=== PATIENT | female | born 1960 | race Caucasian/White ===

== ENCOUNTER 2017-03-25 09:27 | Emergency (ER) | payer OTHER ==
[~2017-03-25] VITALS: Ht 167.6 cm; Wt 99.8 kg
[~2017-03-25 09:27] MED LIST: ACET325; ALBU3IS INH; ALBU90OI INH; ALBUIS; ALPR.5 PO; ALPR1 PO; AMIL5; AMIT50; AMIT50 PO; ARIP15; ARIP20; ARIP20 PO; ASCO500 PO; ASPI325; ASPI325 PO; ASPI81CH; ASPI81CH PO; Amitriptyline100 MG; Amitriptyline100 MG PO; CALCAVITD PO; CARI350 PO; CEPH500 PO; CHOL10002 PO; CIME400; CIPR500 PO; CITA20 PO; CLIN300 PO; CLON.1 PO; CLON1; CLON1 PO; CLON2; CLON2 PO; CRUTCH4 USE; CYAN1000I; DIAZ5 PO; DIGO.25; DILT180; DIPATR PO; DOCU100; ERGO400 PO; ESCI20; FERR160; FISH1000 PO; FLUSAL2505 INH; FOLI1; FURO20; FURO40; FURO40 PO; GABA300 PO; GLIM2; GLIM2 PO; GLIMEPIRIDE 1 MG; GLIP2.5ER; GUAI600T33; GUAIFENEX DM; HYDACE5 PO; HYDMOR2 PO; HYDMOR8; HYDPAM50 PO; INSR10I; INSR10I SC; INSUASPI SC; INSULANI; INSULANI SC; INSULANPEN SC; IPRAOI; LAMO100 PO; LAVAP17G PO; LEVEMIR FL100 UNIT/1 SC; LEVFLO500; LEVFLO500 PO; LEVO750 PO; LEXAPRO; LISI20; LISI5 PO; LOSA50 PO; LOVA20; LOVA20 PO; Lamictal200 MG PO; Lovastatin20 MG PO; Lovastatin40 MG PO; MAGCHL64ER; MAGOXI400 PO; METF500; METF500 PO; METF500C PO; METO10; METO10 PO; METO100ER; METO5; METO50; METO50 PO; METO50ER; METO50ER PO; MORP20L; MORP30; MORP30 PO; MORP60ER PO; MORPHINE LIQUID; MORPHINE PO; MULVITMIND PO; MULVITMINE; MULVITMINE PO; NATE60; Novolin R100 UNIT/M IM; Novolin R100 UNIT/M SC; OMEP40CA12 PO; OXYACE5C PO; OXYACE5T PO; OXYC10ER; OXYC30; OXYC30 PO; OXYC30ER PO; OXYC5; OXYGEN; OXYGEN USE; PANT40; PANT40 PO; PHENY100ER PO; PIOG15; POTA10T PO; POTCHL10ER; POTCHL20ER; POTCHL20ER PO; PRED10 PO; PRED20; PRED20 PO; PREDNISONE 20 MG; PREN-16 PO; PRENZ PO; PROC25S PR; PROM25; PROM25 PO; PROM25S; QUET100; RANI150; RISE35; RISP1; RISP2; RISP4 PO; RXDIPATR PO; RXHYDMOR2 PO; SENN187; SENN187 PO; SENNA GEN; SENNA-GEN PO; SENNP; SENNP PO; SPIHYD; SPIR50; SPIR50 PO; Senna8.6 M1 PO; VENL75; VITAMIN D5000 UNI1 PO; Verotin-Gr Cap1 EACH PO; [UNRECOGNIZED DRUG - CODE]; [UNRECOGNIZED DRUG - OTHER]; [UNRECOGNIZED DRUG - OTHER]; [UNRECOGNIZED DRUG - OTHER]; [UNRECOGNIZED DRUG - OTHER]; [UNRECOGNIZED DRUG - REMARK]; [UNRECOGNIZED DRUG - REMARK]
[2017-03-25] MEDS ORDERED: SPIR50 PO (09:51)
[2017-03-25 09:54] LABS: Bilirubin, Urine Neg (Neg); Blood, Urine 1+ (Neg); Glucose Qualitative, Urine Neg (Neg); Ketones, Urine Neg (Neg); Leukocyte Esterase, Urine 1+ (Neg); Nitrite, Urine Pos (Neg); Protein, Urine 1+ (Neg); Urobilinogen, Urine 1+ (Normal)
[2017-03-25 10:02] LABS: BASOPHILS ABSOLUTE AUTO 0.04 K/mm3 (0.00-0.23); BASOPHILS PERCENT AUTO 1 % (0-2); EOSINOPHILS ABSOLUTE AUTO 0.02 K/mm3 (0.00-0.68); EOSINOPHILS PERCENT AUTO 0 % (0-6); Hematocrit 44.6 % (33.0-51.0); Hemoglobin 13.9 g/dL (11.5-16.0); IMMATURE GRAN ABSOLUTE AUTO 0.03 K/mm3 (0.00-0.10); IMMATURE GRAN PERCENT AUTO 0 % (0-1); LYMPHOCYTES ABSOLUTE AUTO 0.99 K/mm3 (0.84-5.20); LYMPHOCYTES PERCENT AUTO 13 % (21-46); MONOCYTES ABSOLUTE AUTO 0.36 K/mm3 (0.16-1.47); MONOCYTES PERCENT AUTO 5 % (4-13); Mean Corpuscular HGB 27.6 pg (26.0-34.0); Mean Corpuscular HGB Conc 31.2 g/dL (31.5-36.5); Mean Corpuscular Volume 89 fL (80-100); Mean Platelet Volume 10.3 fL (9.1-12.4); NEUTROPHILS ABSOLUTE AUTO 6.27 K/mm3 (1.96-9.15); NEUTROPHILS PERCENT AUTO 81 % (41-73); Platelet Count 205 K/mm3 (150-400); RDW Coefficient Variation 13.8 % (11.7-14.2); RDW Standard Deviation 44.7 fL (35.1-46.3); Red Blood Cell Count 5.04 M/mm3 (3.80-5.20); White Blood Cell Count 7.71 K/mm3 (4.00-11.30)
[2017-03-25] MEDS ORDERED: Novolin R100 UNIT/M SC (10:05)
[2017-03-25 10:09] LABS: Appearance, Urine Cloudy (Clear); Color, Urine Yellow (P-Yellow)
[2017-03-25 10:11] LABS: Bacteria Many /hpf; Red Blood Cells, Urine 0-2 /hpf (0-2); Squamous Epithelial Cells Mod /hpf (Few)
[2017-03-25 10:21] LABS: Alanine Aminotransfer (ALT/SGP 83 U/L (12-78); Albumin, Blood 3.5 g/dL (3.4-5.0); Albumin/Globulin Ratio 0.9 (0.8-1.8); Alk Phos 97 U/L (50-136); Anion Gap 7 mmol/L (6-16); Aspartate Aminotrans (AST/SGOT 46 U/L (12-37); Bilirubin, Total 0.3 mg/dL (0.1-1.0); Blood Urea Nitrogen 9 mg/dL (8-24); CO2, Blood 26 mmol/L (21-32); Calcium, Blood 9.3 mg/dL (8.5-10.1); Chloride, Blood 105 mmol/L (98-108); Creatinine, Blood 0.82 mg/dL (0.40-1.00); Globulin, Blood 3.8 g/dL (2.2-4.0); Glomerular Filtration Rate >60 (60-); Glucose, Blood 98 mg/dL (70-99); Sodium, Blood 138 mmol/L (136-145); Total Protein, Blood 7.3 g/dL (6.4-8.2); Troponin I <0.015 ng/mL (0.000-0.040)
[2017-03-25 10:45] LABS: International Normalized Ratio 1.07; Prothrombin Time Results 11.1 Sec (9.7-11.5)
[2017-03-25] MEDS ORDERED: Zofran Odt4 MG SL (11:29)
[2017-11-01] MEDS ORDERED: PROM25 (21:37)
[2017-11-03] MEDS ORDERED: ASPI81CH PO (10:43)
== END 2017-03-25 12:11 | disposition home or self-care (01) ==
LOC: ER 09:27
PROVIDERS: Emergency Medicine
DX: G40.909 Epilepsy, unspecified, not intractable, without status epilepticus (principal); E86.0 Dehydration; F20.9 Schizophrenia, unspecified; G89.29 Other chronic pain; I11.0 Hypertensive heart disease with heart failure; I50.9 Heart failure, unspecified; E78.5 Hyperlipidemia, unspecified; E11.9 Type 2 diabetes mellitus without complications; I25.2 Old myocardial infarction; F17.200 Nicotine dependence, unspecified, uncomplicated; Z88.8 Allergy status to other drugs, medicaments and biological substances; Z88.0 Allergy status to penicillin; Z88.2 Allergy status to sulfonamides; Z88.5 Allergy status to narcotic agent; Z88.1 Allergy status to other antibiotic agents; Z91.09 Other allergy status, other than to drugs and biological substances; Z79.899 Other long term (current) drug therapy; Z79.82 Long term (current) use of aspirin; Z79.4 Long term (current) use of insulin; Z96.643 Presence of artificial hip joint, bilateral; Z96.653 Presence of artificial knee joint, bilateral; Z90.710 Acquired absence of both cervix and uterus; Z90.89 Acquired absence of other organs; Z87.01 Personal history of pneumonia (recurrent); Z85.3 Personal history of malignant neoplasm of breast
CPT/HCPCS: 36415; 70450; 74022; 80053; 81001; 82140; 83690; 84484; 85025; 85610; 87077; 87086; 87186; 96361; 96374; 96375; 99284; J1885; J2550; J7030

== ENCOUNTER → 2017-04-03 | Outpatient (CLI) | payer OTHER ==
[~2017-04-03] MED LIST changes: +DOCU100 PO; +OXYC15ER PO; +Zofran Odt4 MG SL
[2017-04-03 11:19] LABS: BASOPHILS ABSOLUTE AUTO 0.03 K/mm3 (0.00-0.23); BASOPHILS PERCENT AUTO 0 % (0-2); EOSINOPHILS ABSOLUTE AUTO 0.02 K/mm3 (0.00-0.68); EOSINOPHILS PERCENT AUTO 0 % (0-6); Hematocrit 46.1 % (33.0-51.0); Hemoglobin 14.7 g/dL (11.5-16.0); IMMATURE GRAN ABSOLUTE AUTO 0.06 K/mm3 (0.00-0.10); IMMATURE GRAN PERCENT AUTO 1 % (0-1); LYMPHOCYTES ABSOLUTE AUTO 1.21 K/mm3 (0.84-5.20); LYMPHOCYTES PERCENT AUTO 14 % (21-46); MONOCYTES ABSOLUTE AUTO 0.54 K/mm3 (0.16-1.47); MONOCYTES PERCENT AUTO 6 % (4-13); Mean Corpuscular HGB 28.5 pg (26.0-34.0); Mean Corpuscular HGB Conc 31.9 g/dL (31.5-36.5); Mean Corpuscular Volume 90 fL (80-100); Mean Platelet Volume 10.6 fL (9.1-12.4); NEUTROPHILS ABSOLUTE AUTO 7.05 K/mm3 (1.96-9.15); NEUTROPHILS PERCENT AUTO 79 % (41-73); Platelet Count 243 K/mm3 (150-400); RDW Coefficient Variation 14.4 % (11.7-14.2); RDW Standard Deviation 46.9 fL (35.1-46.3); Red Blood Cell Count 5.15 M/mm3 (3.80-5.20); White Blood Cell Count 8.91 K/mm3 (4.00-11.30)
[2017-04-03 11:34] LABS: Alanine Aminotransfer (ALT/SGP 67 U/L (12-78); Albumin, Blood 4.2 g/dL (3.4-5.0); Albumin/Globulin Ratio 1.2 (0.8-1.8); Alk Phos 109 U/L (40-126); Anion Gap 9 mmol/L (6-16); Aspartate Aminotrans (AST/SGOT 33 U/L (12-37); Bilirubin, Total 0.3 mg/dL (0.1-1.0); Blood Urea Nitrogen 6 mg/dL (8-24); Bun/Creatinine Ratio 7.5 (12.0-20.0); CO2, Blood 28 mmol/L (21-32); Calcium, Blood 9.5 mg/dL (8.5-10.1); Chloride, Blood 101 mmol/L (98-108); Globulin, Blood 3.4 g/dL (2.2-4.0); Glomerular Filtration Rate >60 (60-); Glucose, Blood 107 mg/dL (70-99); Potassium, Blood 4.3 mmol/L (3.5-5.5); Sodium, Blood 138 mmol/L (136-145); Total Protein, Blood 7.6 g/dL (6.4-8.2)
== END | disposition home or self-care (01) ==
LOC: LAB EV 11:15
PROVIDERS: Family Medicine
DX: E86.0 Dehydration (principal)
CPT/HCPCS: 80053; 85025

== ENCOUNTER → 2017-05-07 | Outpatient (CLI) | payer OTHER ==
[2017-05-07 12:41] LABS: Bilirubin, Urine Neg (Neg); Blood, Urine Neg (Neg); Glucose Qualitative, Urine Neg (Neg); Ketones, Urine Neg (Neg); Leukocyte Esterase, Urine Neg (Neg); Nitrite, Urine Neg (Neg); Protein, Urine Neg (Neg); Urobilinogen, Urine NORM (Normal)
[2017-05-07 13:01] LABS: Appearance, Urine Clear (Clear); Color, Urine Yellow (P-Yellow)
== END | disposition home or self-care (01) ==
LOC: LAB 10:45
PROVIDERS: Internal Medicine Hematology & Oncology
DX: R10.9 Unspecified abdominal pain (principal); R50.9 Fever, unspecified
CPT/HCPCS: 81003

== ENCOUNTER 2017-07-09 10:27 | Emergency (ER) | payer OTHER ==
[~2017-07-09] VITALS: Ht 167.6 cm; Wt 99.8 kg
[~2017-07-09 10:27] MED LIST changes: -DOCU100 PO; -OXYC15ER PO
== END 2017-07-09 11:13 | disposition home or self-care (01) ==
LOC: ER 10:27
DX: T21.22XA Burn of second degree of abdominal wall, initial encounter (principal); T22.221A Burn of second degree of right elbow, initial encounter; T22.111A Burn of first degree of right forearm, initial encounter; T31.0 Burns involving less than 10% of body surface; I11.0 Hypertensive heart disease with heart failure; I50.9 Heart failure, unspecified; J44.9 Chronic obstructive pulmonary disease, unspecified; E78.5 Hyperlipidemia, unspecified; E11.9 Type 2 diabetes mellitus without complications; I25.2 Old myocardial infarction; G40.909 Epilepsy, unspecified, not intractable, without status epilepticus; F17.200 Nicotine dependence, unspecified, uncomplicated; Z88.0 Allergy status to penicillin; Z88.8 Allergy status to other drugs, medicaments and biological substances; Z88.2 Allergy status to sulfonamides; Z88.5 Allergy status to narcotic agent; Z88.1 Allergy status to other antibiotic agents; Z91.09 Other allergy status, other than to drugs and biological substances; Z79.899 Other long term (current) drug therapy; Z79.82 Long term (current) use of aspirin; Z79.4 Long term (current) use of insulin; X08.8XXA Exposure to other specified smoke, fire and flames, initial encounter
CPT/HCPCS: 99282

== ENCOUNTER 2017-07-12 08:00 | Day surgery (SDC) | payer OTHER | END 2017-07-12 15:31 | disposition home or self-care (01) | LOC: WOUND 08:00 | PROC: 0HBMXZZ Excision of Right Foot Skin, External Approach (ICD-10-PCS; principal; 2017-07-12) | DX: T25.331A Burn of third degree of right toe(s) (nail), initial encounter (principal); T21.31XA Burn of third degree of chest wall, initial encounter; T22.221A Burn of second degree of right elbow, initial encounter; T21.00XA Burn of unspecified degree of trunk, unspecified site, initial encounter; F17.210 Nicotine dependence, cigarettes, uncomplicated; J44.9 Chronic obstructive pulmonary disease, unspecified; I11.0 Hypertensive heart disease with heart failure; I50.9 Heart failure, unspecified | CPT/HCPCS: 82947; 87070; 87077; 87186; 87205; G0463 ==

== ENCOUNTER 2017-07-19 10:15 | Day surgery (SDC) | payer OTHER | END 2017-07-19 14:02 | disposition home or self-care (01) | LOC: WOUND 10:15 | PROC: 0HBTXZZ (ICD-10-PCS; principal; 2017-07-19) | PROC: 0HBMXZZ Excision of Right Foot Skin, External Approach (ICD-10-PCS; principal; 2017-07-19) | DX: T21.31XA Burn of third degree of chest wall, initial encounter (principal); T25.331A Burn of third degree of right toe(s) (nail), initial encounter; T21.32XA Burn of third degree of abdominal wall, initial encounter; F17.210 Nicotine dependence, cigarettes, uncomplicated; J44.9 Chronic obstructive pulmonary disease, unspecified; F20.9 Schizophrenia, unspecified | CPT/HCPCS: G0463 ==

== ENCOUNTER 2017-07-26 10:15 | Day surgery (SDC) | payer OTHER | END 2017-07-26 12:02 | disposition home or self-care (01) | LOC: WOUND 10:15 | PROC: 0HBMXZZ Excision of Right Foot Skin, External Approach (ICD-10-PCS; principal; 2017-07-26) | DX: T25.331A Burn of third degree of right toe(s) (nail), initial encounter (principal); L97.512 Non-pressure chronic ulcer of other part of right foot with fat layer exposed; T22.221A Burn of second degree of right elbow, initial encounter; T21.00XA Burn of unspecified degree of trunk, unspecified site, initial encounter; F17.210 Nicotine dependence, cigarettes, uncomplicated; J44.9 Chronic obstructive pulmonary disease, unspecified; F20.9 Schizophrenia, unspecified; E11.621 Type 2 diabetes mellitus with foot ulcer | CPT/HCPCS: G0463 ==

== ENCOUNTER 2017-08-02 10:13 | Day surgery (SDC) | payer OTHER | END 2017-08-02 12:26 | disposition home or self-care (01) | LOC: WOUND 10:13 | PROC: 0HB5XZZ Excision of Chest Skin, External Approach (ICD-10-PCS; principal; 2017-08-02) | DX: T21.31XA Burn of third degree of chest wall, initial encounter (principal); T22.221A Burn of second degree of right elbow, initial encounter; T21.00XA Burn of unspecified degree of trunk, unspecified site, initial encounter; F17.210 Nicotine dependence, cigarettes, uncomplicated; J44.9 Chronic obstructive pulmonary disease, unspecified; F20.9 Schizophrenia, unspecified | CPT/HCPCS: G0463 ==

== ENCOUNTER 2017-08-08 13:12 | Day surgery (SDC) | payer OTHER | END 2017-08-08 22:56 | disposition home or self-care (01) | LOC: WOUND 13:12 | PROC: 0HB5XZZ Excision of Chest Skin, External Approach (ICD-10-PCS; principal; 2017-08-08) | DX: T21.31XA Burn of third degree of chest wall, initial encounter (principal); T21.00XA Burn of unspecified degree of trunk, unspecified site, initial encounter; T22.221A Burn of second degree of right elbow, initial encounter; F17.218 Nicotine dependence, cigarettes, with other nicotine-induced disorders; J44.9 Chronic obstructive pulmonary disease, unspecified; F20.9 Schizophrenia, unspecified | CPT/HCPCS: G0463 ==

== ENCOUNTER 2017-08-13 09:47 | Observation (INO) | payer OTHER ==
[~2017-08-13] VITALS: Ht 167.6 cm; Wt 106.8 kg
[2017-08-13] MEDS ORDERED: OXYC15ER PO (09:57)
[2017-08-13] MEDS ORDERED: ALPR1 PO (09:58)
[2017-08-13 11:03] LABS: BASOPHILS ABSOLUTE AUTO 0.04 K/mm3 (0.00-0.23); BASOPHILS PERCENT AUTO 0 % (0-2); EOSINOPHILS ABSOLUTE AUTO 0.03 K/mm3 (0.00-0.68); EOSINOPHILS PERCENT AUTO 0 % (0-6); Hematocrit 42.6 % (33.0-51.0); Hemoglobin 13.6 g/dL (11.5-16.0); IMMATURE GRAN ABSOLUTE AUTO 0.08 K/mm3 (0.00-0.10); IMMATURE GRAN PERCENT AUTO 1 % (0-1); LYMPHOCYTES ABSOLUTE AUTO 1.74 K/mm3 (0.84-5.20); LYMPHOCYTES PERCENT AUTO 16 % (21-46); MONOCYTES ABSOLUTE AUTO 1.01 K/mm3 (0.16-1.47); MONOCYTES PERCENT AUTO 9 % (4-13); Mean Corpuscular HGB 28.1 pg (26.0-34.0); Mean Corpuscular HGB Conc 31.9 g/dL (31.5-36.5); Mean Platelet Volume 9.8 fL (9.1-12.4); NEUTROPHILS ABSOLUTE AUTO 8.22 K/mm3 (1.96-9.15); NEUTROPHILS PERCENT AUTO 74 % (41-73); Platelet Count 208 K/mm3 (150-400); RDW Coefficient Variation 14.8 % (11.7-14.2); RDW Standard Deviation 47.9 fL (35.1-46.3); Red Blood Cell Count 4.84 M/mm3 (3.80-5.20); White Blood Cell Count 11.12 K/mm3 (4.00-11.30)
[2017-08-13 11:13] LABS: Mean Corpuscular Volume 88 fL (80-100)
[2017-08-13 11:22] LABS: Alanine Aminotransfer (ALT/SGP 65 U/L (12-78); Albumin, Blood 3.1 g/dL (3.4-5.0); Albumin/Globulin Ratio 0.8 (0.8-1.8); Alk Phos 103 U/L (50-136); Anion Gap 9 mmol/L (6-16); Aspartate Aminotrans (AST/SGOT 34 U/L (12-37); Bilirubin, Total 0.3 mg/dL (0.1-1.0); Blood Urea Nitrogen 8 mg/dL (8-24); Bun/Creatinine Ratio 10.9 (12.0-20.0); CO2, Blood 24 mmol/L (21-32); Calcium, Blood 8.4 mg/dL (8.5-10.1); Chloride, Blood 100 mmol/L (98-108); Creatinine, Blood 0.74 mg/dL (0.40-1.00); Globulin, Blood 3.7 g/dL (2.2-4.0); Glomerular Filtration Rate >60 (60-); Glucose, Blood 86 mg/dL (70-99); Potassium, Blood 4.1 mmol/L (3.5-5.5); Sodium, Blood 133 mmol/L (136-145); Total Protein, Blood 6.8 g/dL (6.4-8.2)
[2017-08-14 06:11] LABS: Hematocrit 37.9 % (33.0-51.0); Hemoglobin 11.9 g/dL (11.5-16.0); Mean Corpuscular HGB 28.1 pg (26.0-34.0); Mean Corpuscular HGB Conc 31.4 g/dL (31.5-36.5); Mean Corpuscular Volume 89 fL (80-100); Mean Platelet Volume 9.8 fL (9.1-12.4); Platelet Count 176 K/mm3 (150-400); RDW Coefficient Variation 15.1 % (11.7-14.2); RDW Standard Deviation 48.9 fL (35.1-46.3); Red Blood Cell Count 4.24 M/mm3 (3.80-5.20); White Blood Cell Count 12.16 K/mm3 (4.00-11.30)
[2017-08-14 06:27] LABS: Anion Gap 7 mmol/L (6-16); Blood Urea Nitrogen 9 mg/dL (8-24); Bun/Creatinine Ratio 11.1 (12.0-20.0); CO2, Blood 28 mmol/L (21-32); Chloride, Blood 100 mmol/L (98-108); Creatinine, Blood 0.81 mg/dL (0.40-1.00); Glomerular Filtration Rate >60 (60-); Glucose, Blood 91 mg/dL (70-99); Potassium, Blood 4.1 mmol/L (3.5-5.5); Sodium, Blood 135 mmol/L (136-145)
[2017-08-15 09:52] LABS: Hematocrit 39.1 % (33.0-51.0); Hemoglobin 11.7 g/dL (11.5-16.0); Mean Corpuscular HGB 27.5 pg (26.0-34.0); Mean Corpuscular HGB Conc 29.9 g/dL (31.5-36.5); Mean Platelet Volume 9.8 fL (9.1-12.4); Platelet Count 198 K/mm3 (150-400); RDW Coefficient Variation 14.8 % (11.7-14.2); RDW Standard Deviation 49.9 fL (35.1-46.3); Red Blood Cell Count 4.25 M/mm3 (3.80-5.20); White Blood Cell Count 6.94 K/mm3 (4.00-11.30)
[2017-08-15 10:04] LABS: Mean Corpuscular Volume 92 fL (80-100)
[2017-08-15 10:15] LABS: Anion Gap 6 mmol/L (6-16); Blood Urea Nitrogen 11 mg/dL (8-24); Bun/Creatinine Ratio 12.8 (12.0-20.0); CO2, Blood 32 mmol/L (21-32); Calcium, Blood 8.6 mg/dL (8.5-10.1); Chloride, Blood 102 mmol/L (98-108); Creatinine, Blood 0.86 mg/dL (0.40-1.00); Glomerular Filtration Rate >60 (60-); Glucose, Blood 126 mg/dL (70-99); Phosphorus, Blood 3.2 mg/dL (2.5-4.9); Potassium, Blood 4.7 mmol/L (3.5-5.5); Sodium, Blood 140 mmol/L (136-145)
[2017-08-15] MEDS ORDERED: Novolin R100 UNIT/M SC (13:35)
[2017-08-15] MEDS ORDERED: DOCU100 PO (13:36)
== END 2017-08-16 11:37 | disposition home health service (06) ==
LOC: ER 09:47 → MEDS 09:48 → ER 12:15 → MEDS 12:15 → ENPENDDIS 08-15 10:44 → EDPENDDIS 08-15 10:44 → EDPENDDISDT 08-16 11:22 → EDPENDDISTM 08-16 11:22 → EDPENDDIS 08-16 11:22 → MEDS 08-16 11:37
PROVIDERS: Emergency Medicine; Internal Medicine
DX: E11.621 Type 2 diabetes mellitus with foot ulcer (principal); L97.519 Non-pressure chronic ulcer of other part of right foot with unspecified severity; M86.271 Subacute osteomyelitis, right ankle and foot; T25.331A Burn of third degree of right toe(s) (nail), initial encounter; E87.1 Hypo-osmolality and hyponatremia; J44.9 Chronic obstructive pulmonary disease, unspecified; I10 Essential (primary) hypertension; F20.9 Schizophrenia, unspecified; F41.9 Anxiety disorder, unspecified; F32.9 Major depressive disorder, single episode, unspecified; E78.5 Hyperlipidemia, unspecified; I11.0 Hypertensive heart disease with heart failure; F17.210 Nicotine dependence, cigarettes, uncomplicated; I50.9 Heart failure, unspecified; G43.909 Migraine, unspecified, not intractable, without status migrainosus; Z86.010 Personal history of colon polyps; Z89.421 Acquired absence of other right toe(s); Z88.1 Allergy status to other antibiotic agents; Z88.2 Allergy status to sulfonamides; Z88.0 Allergy status to penicillin; Z88.5 Allergy status to narcotic agent; Z88.8 Allergy status to other drugs, medicaments and biological substances; Z79.82 Long term (current) use of aspirin; Z79.899 Other long term (current) drug therapy
CPT/HCPCS: 36415; 80048; 80053; 80069; 82947; 83880; 85025; 85027; 87071; 87075; 87077; 87186; 87205; 93005; 93010; 94640; 94760; 96365; 96366; 96372; 96374; 96375; 96376; 97116; 97161; 97530; 99285; G0378; G8978; G8979; J1650; J1885; J2001; J2250; J3010; J3370; J7030; J7042; J7050; J7120

== ENCOUNTER → 2017-09-17 | Outpatient (CLI) | payer OTHER ==
[~2017-09-17] MED LIST changes: +DOCU100 PO; +OXYC15ER PO
[2017-09-17 17:28] LABS: U Amphetamine Screen Not Detected; U Barbituate Screen Not Detected; U Benzodiazapine Screen Not Detected; U Buprenorphine Screen Not Detected; U Cannabinoids Screen Not Detected; U Cocaine Screen Not Detected; U Methadone Screen Not Detected; U Methamphetamine Screen Not Detected; U Opiates Screen Not Detected; U Oxycodone Screen DETECTED; U Phencyclidine Screen Not Detected; U Propoxyphene Screen Not Detected
== END | disposition home or self-care (01) ==
LOC: LAB 16:35 → LAB SHORT 16:35
PROVIDERS: Internal Medicine Hematology & Oncology
DX: Z51.81 Encounter for therapeutic drug level monitoring (principal); Z79.899 Other long term (current) drug therapy

== ENCOUNTER 2017-11-28 11:02 | Day surgery (SDC) | payer OTHER ==
[~2017-11-28] VITALS: Ht 167.6 cm; Wt 101.7 kg
== END 2017-11-28 15:12 | disposition home or self-care (01) ==
LOC: ORSCSDS 11:02
DX: K21.9 Gastro-esophageal reflux disease without esophagitis (principal); R13.10 Dysphagia, unspecified; K22.70 Barrett's esophagus without dysplasia; K22.2 Esophageal obstruction; K44.9 Diaphragmatic hernia without obstruction or gangrene; R19.7 Diarrhea, unspecified; Z86.010 Personal history of colon polyps; D12.0 Benign neoplasm of cecum; D12.2 Benign neoplasm of ascending colon; D12.3 Benign neoplasm of transverse colon; D12.5 Benign neoplasm of sigmoid colon; K57.30 Diverticulosis of large intestine without perforation or abscess without bleeding; K64.1 Second degree hemorrhoids; E78.5 Hyperlipidemia, unspecified; E11.9 Type 2 diabetes mellitus without complications; J44.9 Chronic obstructive pulmonary disease, unspecified; B19.20 Unspecified viral hepatitis C without hepatic coma; I10 Essential (primary) hypertension; F20.9 Schizophrenia, unspecified; F17.210 Nicotine dependence, cigarettes, uncomplicated; Z99.81 Dependence on supplemental oxygen
CPT/HCPCS: 82947; J2250; J7120

== ENCOUNTER → 2018-04-05 | Outpatient (CLI) | payer OTHER ==
[2018-04-05 13:40] LABS: U Amphetamine Screen Not Detected; U Barbituate Screen Not Detected; U Benzodiazapine Screen DETECTED; U Buprenorphine Screen Not Detected; U Cannabinoids Screen DETECTED; U Cocaine Screen Not Detected; U Methadone Screen Not Detected; U Methamphetamine Screen Not Detected; U Opiates Screen Not Detected; U Oxycodone Screen Not Detected; U Phencyclidine Screen Not Detected; U Propoxyphene Screen Not Detected
[2018-04-12 08:17] LABS: TRICYCLIC ANTIDEP Negative ng/mL ({null, Cutoff=100})
== END | disposition home or self-care (01) ==
LOC: LAB SHORT 12:42 → LAB 12:42
PROVIDERS: Internal Medicine Hematology & Oncology
DX: F11.20 Opioid dependence, uncomplicated (principal)
CPT/HCPCS: 80369; G0480; G0481

== ENCOUNTER → 2018-06-03 | Outpatient (CLI) | payer OTHER ==
[2018-06-03 18:45] LABS: U Amphetamine Screen Not Detected; U Barbituate Screen Not Detected; U Benzodiazapine Screen DETECTED; U Cannabinoids Screen DETECTED; U Cocaine Screen Not Detected; U Methadone Screen Not Detected; U Methamphetamine Screen Not Detected; U Opiates Screen Not Detected; U Phencyclidine Screen Not Detected
[2018-06-03 18:46] LABS: U Buprenorphine Screen Not Detected; U Oxycodone Screen DETECTED; U Propoxyphene Screen Not Detected
== END | disposition home or self-care (01) ==
LOC: LAB 17:08 → LAB SHORT 17:08
PROVIDERS: Internal Medicine Hematology & Oncology
DX: F11.220 Opioid dependence with intoxication, uncomplicated (principal)

== ENCOUNTER 2019-03-23 20:41 | Inpatient (IN) | payer OTHER ==
[~2019-03-23] VITALS: Ht 170.2 cm; Wt 112.7 kg
[~2019-03-23 20:41] MED LIST changes: +Aspirin EC81 MG PO; +LAMOTRIGINE300 MG PO; +OXYC10TA19 PO; -OXYC15ER PO
[2019-03-23] MEDS ORDERED: Amitriptyline100 MG PO (21:01)
[2019-03-23] MEDS ORDERED: Novolin R100 UNIT/M SC (21:02)
[2019-03-23 21:09] LABS: PCO2 Arterial 41.1 mmHg (35-45); pH Blood Arterial 7.47 (7.35-7.45)
[2019-03-23 21:10] LABS: PO2 Arterial 88.1 mmHg (80-100)
[2019-03-23 21:15] LABS: BASOPHILS ABSOLUTE AUTO 0.02 K/mm3 (0.00-0.23); BASOPHILS PERCENT AUTO 0 % (0-2); EOSINOPHILS ABSOLUTE AUTO 0.12 K/mm3 (0.00-0.68); EOSINOPHILS PERCENT AUTO 1 % (0-6); Hematocrit 46.8 % (33.0-51.0); Hemoglobin 14.7 g/dL (11.5-16.0); IMMATURE GRAN ABSOLUTE AUTO 0.05 K/mm3 (0.00-0.10); IMMATURE GRAN PERCENT AUTO 1 % (0-1); LYMPHOCYTES ABSOLUTE AUTO 1.95 K/mm3 (0.84-5.20); LYMPHOCYTES PERCENT AUTO 23 % (21-46); MONOCYTES ABSOLUTE AUTO 0.73 K/mm3 (0.16-1.47); MONOCYTES PERCENT AUTO 9 % (4-13); Mean Corpuscular HGB 28.2 pg (26.0-34.0); Mean Corpuscular HGB Conc 31.4 g/dL (31.5-36.5); Mean Corpuscular Volume 90 fL (80-100); Mean Platelet Volume 10.3 fL (9.1-12.4); NEUTROPHILS ABSOLUTE AUTO 5.54 K/mm3 (1.96-9.15); NEUTROPHILS PERCENT AUTO 66 % (41-73); Platelet Count 232 K/mm3 (150-400); RDW Coefficient Variation 14.4 % (11.7-14.2); RDW Standard Deviation 47.8 fL (35.1-46.3); Red Blood Cell Count 5.22 M/mm3 (3.80-5.20); White Blood Cell Count 8.41 K/mm3 (4.00-11.30)
[2019-03-23 21:39] LABS: Alanine Aminotransfer (ALT/SGP 56 U/L (12-78); Albumin, Blood 3.7 g/dL (3.4-5.0); Albumin/Globulin Ratio 0.9 (0.8-1.8); Alk Phos 92 U/L (50-136); Anion Gap 6 mmol/L (6-16); Aspartate Aminotrans (AST/SGOT 31 U/L (12-37); Bilirubin, Total 0.4 mg/dL (0.1-1.0); Blood Urea Nitrogen 9 mg/dL (8-24); CO2, Blood 29 mmol/L (21-32); CPK Creatine Kinase 100 U/L (26-193); Calcium, Blood 9.4 mg/dL (8.5-10.1); Chloride, Blood 106 mmol/L (98-108); Creatinine, Blood 0.69 mg/dL (0.40-1.00); Ethanol (Alcohol), Blood, Med <3 mg/dL; Globulin, Blood 3.9 g/dL (2.2-4.0); Glomerular Filtration Rate >60 (60-); Glucose, Blood 96 mg/dL (70-99); Salicylate <1.7 mg/dL (2.8-20.0); Sodium, Blood 141 mmol/L (136-145); Thyroxine (T4) 14.4 ug/dL (4.8-13.9); Total Protein, Blood 7.6 g/dL (6.4-8.2); Troponin I <0.015 ng/mL (0.000-0.040)
[2019-03-23 21:44] LABS: Thyroid Stimulating Hormone 0.659 uIU/mL (0.360-4.800); Triiodothyronine, Free 2.82 pg/mL (2.18-3.98)
[2019-03-23 21:47] LABS: Acetaminophen, Random <2.0 ug/mL (10.0-30.0)
[2019-03-23 21:52] LABS: Source, Urine Catheter
[2019-03-23 21:55] LABS: Bilirubin, Urine Neg (Neg); Blood, Urine Neg (Neg); Glucose Qualitative, Urine Neg (Neg); Ketones, Urine Neg (Neg); Leukocyte Esterase, Urine Neg (Neg); Nitrite, Urine Neg (Neg); Protein, Urine Neg (Neg); Specific Gravity, Urine 1.005 (1.003-1.022); Urobilinogen, Urine NORM (Normal)
[2019-03-23 21:59] LABS: Appearance, Urine Clear (Clear); Color, Urine Yellow (P-Yellow)
[2019-03-23 22:00] LABS: International Normalized Ratio 0.97; Prothrombin Time Results 10.4 Sec (9.7-11.5)
[2019-03-23 22:08] LABS: U Amphetamine Screen Not Detected; U Barbituate Screen Not Detected; U Benzodiazapine Screen DETECTED; U Buprenorphine Screen Not Detected; U Cannabinoids Screen DETECTED; U Cocaine Screen Not Detected; U Methadone Screen Not Detected; U Methamphetamine Screen Not Detected; U Opiates Screen DETECTED; U Oxycodone Screen DETECTED; U Phencyclidine Screen Not Detected; U Propoxyphene Screen Not Detected
[2019-03-23 22:14] LABS: Influenza A Negative (NEGATIVE); Influenza B Negative (NEGATIVE)
--- NOTE | 2019-03-24 00:05 | NUR ---
PATIENT ARRIVED TO ICU 1 VIA GURNEY FROM ED. TRANSFERRING WITH RT BAGGING PATIENT VIA ETT. PATIENT TRANSFERRED TO BED USING SLIDER SHEET AND PLACED ON VENT SET AT AC 16, TV 450, PEEP 5, FIO2 40% BY RT. PATIENT PLACED ON ICU MONITORS. PATIENT SEDATED WITH PROPOFOL INFUSING AT 35MCG. PATIENT COUGHING AND MOVING ALL EXTREMITIES, BUT NOT TO COMMANDS. BILAT WRIST RESTRAINTS IN PLACE TO PREVENT ACCIDENTAL EXTUBATION.
[2019-03-24 03:00] LABS: Adenovirus Not Detected (NOT DETECT); Bordetella pertussis Not Detected (NOT DETECT); Chlamydophila pneumoniae Not Detected (NOT DETECT); Coronavirus 229E Not Detected (NOT DETECT); Coronavirus HKU1 Not Detected (NOT DETECT); Coronavirus NL63 Not Detected (NOT DETECT); Coronavirus OC43 Not Detected (NOT DETECT); Human Metapneumovirus Not Detected (NOT DETECT); Human Rhinovirus/Enterovirus Not Detected (NOT DETECT); Influenza A Not Detected (NOT DETECT); Influenza A/2009-H1 Not Detected (NOT DETECT); Influenza A/H1 Not Detected (NOT DETECT); Influenza A/H3 Not Detected (NOT DETECT); Influenza B Not Detected (NOT DETECT); Mycoplasma pneumoniae Not Detected (NOT DETECT); Parainfluenza Virus 1 Not Detected (NOT DETECT); Parainfluenza Virus 2 Not Detected (NOT DETECT); Parainfluenza Virus 3 Not Detected (NOT DETECT); Parainfluenza Virus 4 Not Detected (NOT DETECT); Respiratory Syncytial Virus Not Detected (NOT DETECT)
[2019-03-24 05:13] LABS: Hematocrit 44.1 % (33.0-51.0); Hemoglobin 13.4 g/dL (11.5-16.0); Mean Corpuscular HGB 28.2 pg (26.0-34.0); Mean Corpuscular HGB Conc 30.4 g/dL (31.5-36.5); Mean Platelet Volume 10.5 fL (9.1-12.4); Platelet Count 213 K/mm3 (150-400); RDW Coefficient Variation 14.5 % (11.7-14.2); RDW Standard Deviation 49.4 fL (35.1-46.3); Red Blood Cell Count 4.76 M/mm3 (3.80-5.20)
[2019-03-24 05:15] LABS: Mean Corpuscular Volume 93 fL (80-100)
[2019-03-24 05:32] LABS: Alanine Aminotransfer (ALT/SGP 49 U/L (12-78); Albumin/Globulin Ratio 0.9 (0.8-1.8); Alk Phos 74 U/L (50-136); Anion Gap 7 mmol/L (6-16); Aspartate Aminotrans (AST/SGOT 21 U/L (12-37); Bilirubin, Total 0.3 mg/dL (0.1-1.0); Blood Urea Nitrogen 10 mg/dL (8-24); Bun/Creatinine Ratio 12.8 (12.0-20.0); CO2, Blood 26 mmol/L (21-32); Calcium, Blood 8.5 mg/dL (8.5-10.1); Chloride, Blood 109 mmol/L (98-108); Creatinine, Blood 0.78 mg/dL (0.40-1.00); Globulin, Blood 3.4 g/dL (2.2-4.0); Glomerular Filtration Rate >60 (60-); Glucose, Blood 101 mg/dL (70-99); Potassium, Blood 4.2 mmol/L (3.5-5.5); Sodium, Blood 142 mmol/L (136-145); Total Protein, Blood 6.4 g/dL (6.4-8.2)
[2019-03-24 05:41] LABS: PCO2 Arterial 45.3 mmHg (35-45); PO2 Arterial 78.8 mmHg (80-100); pH Blood Arterial 7.39 (7.35-7.45)
--- NOTE | 2019-03-24 05:54 | NUR ---
DOCTOR RAFIQ NOTIFIED OF HYPOTENSION, 2ND NS 500CC BOLUS, NARCAN ORDERED. FENTANYL IV ORDER OBTAINED SO CAN MINIMIZE PROPOFOL
--- NOTE | 2019-03-24 06:52 | NUR ---
SUMMARY PATIENT REMAINS INTUBATED AND SEDATED, PROPOFOL TITRATED DUE TO HYPOTENSION AND SEDATION. SECOND 500CC BOLUS GIVEN DUE TO HYPOTENSION AND ELEVATED LACTIC. WHEN AWAKE PATIENT OPENS EYES AND MOVES ALL EXTREMITIES, GOOD STRONG COUGH, BUT NOT FOLLOWING DIRECTIONS. PATIENT HAD NO CHANGE IN MENTATION AFTER NARCAN, UNTIL APROX 10 MIN LATER STARTED COUGHING AND SITTING UP IN BED, FENTANYL IV GIVEN AND PROPOFOL INFUSING AT 30MCG.
--- NOTE | 2019-03-24 07:28 | NUR ---
REC'D BEDSIDE REPORT FROM RONAL EDOUARD AND AM NOW ASSUMING CARE OF PT.
--- NOTE | 2019-03-24 09:15 | NUR ---
DR KYLE IN TO ASSESS PT. UPDATED WITH PT'S CURRENT STATUS. WILL LIGHTEN SEDATION FOR SEDATION VACATION TO ASSESS NEURO AND ASSESS READINESS TO WEAN OFF VENT TODAY.
--- NOTE | 2019-03-24 10:29 | NUR ---
PT UPDATE: POWERGLIDE PLACED IN THE LT UA WITHOUT DIFFICULTY. . PROPOFOL PLACED ON HOLD AT 1015. DIETARY IN TO ASSESS PT. REPORTED TO HER THAT ABOVE AND POTENTIAL EXTUBATION TODAY.
--- NOTE | 2019-03-24 10:51 | NUR ---
EXTUBATION: PT DID WELL WITH HER WEAN. OPENS EYES SPONTANEOUSLY, PT FOLLOWING COMMANDS. PT EXTUBATED PER SILKE RT AT 1045. PT SP02 SATS >90% ON 2L 02 VIA N/C.
--- NOTE | 2019-03-24 11:17 | NUR ---
DR RAMON AT THE BEDSIDE TO EVALUATE PT. UPDATED PT/PT'S MOM AT THE BEDSIDE. PT IS ASKING FOR PAIN MEDICATION SOON EXTUBATED. EXPLAINED TO PT, SHE IS STILL VERY DROWSY AND WOULD LIKE HER TO CLEAR NEUROLOGICALLY AND THEN EVALUATE SWALLOW AND RESTART ON HOME PAIN MEDICATION REGIMEN.
--- NOTE | 2019-03-24 16:17 | NUR ---
CALLED DR RAMON RE: CONTINUED PAIN DESPITE GIVING HOME DOSE OF OXYCODONE. PT'S FAMILY CONFIRMED HOME DOSE OF OXYCODONE 5-10MG PO Q4P.
--- NOTE | 2019-03-24 16:47 | NUR ---
SHIFT SUMMARY: PT IS ALERT AND ORIENTED X3. PT HAS BEEN FIXATED ON HER PAIN MEDICATIONS, DESPITE HER BEING DROWSY FOR A SHORT WHILE POST EXTUBATION, EDUCATING PT ON MEDICATION ORDER AND ATTEMPT TO MINIMIZE NARCOTICS AND CONTINUALLY ASKS, EVEN THOUGH SHE HAS BEEN INFORMED ON NEXT ADMIN TIME. PT REPORTS SHE IS MOSTLY INDEPENDENT AT HOME AND GETS AROUND WITH A FWW. PT OOB TO CHAIR WITH LIFT TODAY AND WAS DIFFICULT TO ENCOURAGE PT TO STAY OOB FOR MORE THAN 20MIN. PT/OT STARTED WITH PT. LUNGS ARE CLEAR BUT DIMINISHED IN THE BILATERAL BASES. SP02 SATS >90% ON 2L 02 VIA N/C. HR REGULAR, SR-70-80'S RANGE. POWERGLIDE PLACED IN HER LT UA WITH NS @ 100ML/HR. ABD LARGE/ROUND/NON-TENDER TO PALPATION. BT'S INTIALLY HYPOACTIVE, NOW ACTIVE X4 QUADS, PT HAS GOOD APPETITE. PT IS NOT HAPPY WITH [facility] DIET, AND STATES, "I'LL JUST HAVE MY SISTER BRING ME IN SOMETHING. I DON'T KNOW HOW YOU EXPECT SOMEONE TO LIVE OFF THAT FOOD. I NEED STRENGTH." PT PLACED ON BEDPAN, HOWEVER, NO RESULTS. REPORTS ABLE TO PASS SOME FLATUS.
--- NOTE | 2019-03-24 19:36 | NUR ---
PATIENT AWAKE SPEAKING WITH SLIGHT TREMOR TO VOICE. PATIENT VERBALIZED THAT SHE IS HUNGARY, SNACK OF GRAM CRACKERS AND MILK GIVEN. PATIENT NORIS PO WITHOUT DIFFICULTY. REPOSITIONING SELF IN BED FOR COMFORT. ON 2L/NC SOB WITH ACTIVITY, PATIENT VERBALIZED THAT SHE IS SOB WITH ACTIVITY AT BASELINE. CHRONIC PAIN ASKING WHEN HER NEXT PAIN MEDICATIONS ARE ABLE TO BE GIVEN.
--- NOTE | 2019-03-24 20:57 | NUR ---
PATIENT AWAKE EATING ANOTHER SNACK, "I'M JUST HUNGARY" PATIENT REQUESTING PAIN PILL FOR CHRONIC PAIN TO HER NECK AND BACK, BECOMING ANGRY WHEN FINDING OUT THAT SHE IS NOT RECEIVING TOTAL OF 15MG OF OXYCODONE. PATIENT VERBALIZING THAT SHE IS GOING TO CALL HER SISTER AND BE READY TO GO HOME IN THE MORNING.
--- NOTE | 2019-03-24 22:53 | NUR ---
GAS PLUMBING INSPECTOR HERE FOR EEG. PATIENT AWAKE TALKING WITH FAMILY, FAMILY BRINGING IN FOOD FOR PATIENT.
[2019-03-25 03:49] LABS: BASOPHILS ABSOLUTE AUTO 0.03 K/mm3 (0.00-0.23); BASOPHILS PERCENT AUTO 0 % (0-2); EOSINOPHILS ABSOLUTE AUTO 0.14 K/mm3 (0.00-0.68); EOSINOPHILS PERCENT AUTO 2 % (0-6); Hematocrit 38.6 % (33.0-51.0); Hemoglobin 11.9 g/dL (11.5-16.0); IMMATURE GRAN ABSOLUTE AUTO 0.06 K/mm3 (0.00-0.10); IMMATURE GRAN PERCENT AUTO 1 % (0-1); LYMPHOCYTES ABSOLUTE AUTO 1.82 K/mm3 (0.84-5.20); LYMPHOCYTES PERCENT AUTO 24 % (21-46); MONOCYTES ABSOLUTE AUTO 0.74 K/mm3 (0.16-1.47); MONOCYTES PERCENT AUTO 10 % (4-13); Mean Corpuscular HGB 28.8 pg (26.0-34.0); Mean Corpuscular HGB Conc 30.8 g/dL (31.5-36.5); Mean Corpuscular Volume 94 fL (80-100); Mean Platelet Volume 10.1 fL (9.1-12.4); NEUTROPHILS ABSOLUTE AUTO 4.79 K/mm3 (1.96-9.15); NEUTROPHILS PERCENT AUTO 63 % (41-73); Platelet Count 203 K/mm3 (150-400); RDW Coefficient Variation 15.3 % (11.7-14.2); RDW Standard Deviation 52.5 fL (35.1-46.3); Red Blood Cell Count 4.13 M/mm3 (3.80-5.20); White Blood Cell Count 7.58 K/mm3 (4.00-11.30)
[2019-03-25 04:14] LABS: Anion Gap 7 mmol/L (6-16); Blood Urea Nitrogen 7 mg/dL (8-24); Bun/Creatinine Ratio 8.9 (12.0-20.0); CO2, Blood 27 mmol/L (21-32); Calcium, Blood 8.4 mg/dL (8.5-10.1); Chloride, Blood 111 mmol/L (98-108); Creatinine, Blood 0.79 mg/dL (0.40-1.00); Glomerular Filtration Rate >60 (60-); Glucose, Blood 89 mg/dL (70-99); Magnesium, Blood 1.9 mg/dL (1.6-2.4); Phosphorus, Blood 3.6 mg/dL (2.5-4.9); Potassium, Blood 4.1 mmol/L (3.5-5.5); Sodium, Blood 145 mmol/L (136-145)
--- NOTE | 2019-03-25 07:55 | NUR ---
SUMMARY PATIENT SLEEPING OFF AND ON T/O NIGHT. EEG DONE. WHEN AWAKE PATIENT C/O BEING HUNGARY, PATIENT HAD SEVERAL SNACKS T/O NIGHT AND PATIENT FAMILY BROUGHT FOOD IN FROM HOME FOR HER. PATIENT C/O CHRONIC BACK AND SHOULDER PAIN. MEDICATED WITH OXYCODONE AND HEATING PAD PLACED TO SHOULDERS. PATIENT REPOSITIONING SELF IN BED FOR COMFORT T/O NIGHT.
--- NOTE | 2019-03-25 12:47 | NUR ---
PT TO DISCHARGE THIS AFTERNOON. PT'S OXYCODONE DOSE VERIFIED [facility]. DISCHARGE INSTRUCTIONS REVIEWED WITH PT REGARDING FOLLOW UP APPOINTMENT AND MEDICATIONS. CARE MANAGEMENT GETTING HOME HEALTH SET UP. DEVRIES REMOVED AND PT HAS VOIDED SINCE. IV LINES REMOVED WITHOUT ANY COMPLICATIONS. AWAITING PT'S SISTER TO BRING HER CLOTHES AND GIVE HER A RIDE.
--- NOTE | 2019-03-25 12:59 | NUR ---
DICHARGE: PT DISCHARGED WITH HER SISTER VIA WC AND PRIVATE VEHICLE. ALL BELONGINGS SENT HOME WITH PT. ALL QUESTIONS ANSWERED.
== END 2019-03-25 12:57 | disposition home or self-care (01) | DRG 917 ==
LOC: ER 20:41 → ICUE 20:42 → ER 23:11 → ICUE 23:11 → ICUW 23:11 → ICUE 23:55 → ICUW 23:55 → ICUE 03-24 00:54
PROVIDERS: Emergency Medicine; Internal Medicine Critical Care Medicine; ADMIT Internal Medicine
PROC: 0BH17EZ Insertion of Endotracheal Airway into Trachea, Via Natural or Artificial Opening (ICD-10-PCS; principal; 2019-03-24)
PROC: 5A1935Z Respiratory Ventilation, Less than 24 Consecutive Hours (ICD-10-PCS; 2019-03-24)
DX: T43.011A Poisoning by tricyclic antidepressants, accidental (unintentional), initial encounter (principal); R40.20 Unspecified coma; G92 Toxic encephalopathy; I50.32 Chronic diastolic (congestive) heart failure; T42.4X1A Poisoning by benzodiazepines, accidental (unintentional), initial encounter; J44.9 Chronic obstructive pulmonary disease, unspecified; Z99.81 Dependence on supplemental oxygen; I11.0 Hypertensive heart disease with heart failure; I25.2 Old myocardial infarction; R56.9 Unspecified convulsions; E11.8 Type 2 diabetes mellitus with unspecified complications; Z79.4 Long term (current) use of insulin; F17.210 Nicotine dependence, cigarettes, uncomplicated; Z79.82 Long term (current) use of aspirin
CPT/HCPCS: 0099U; 31500; 36415; 36600; 51702; 70450; 71045; 80048; 80053; 81003; 81025; 82140; 82330; 82550; 82803; 82947; 83605; 83735; 83880; 84100; 84145; 84146; 84436; 84443; 84481; 84484; 85025; 85027; 85610; 85730; 87040; 87070; 87205; 87804; 93005; 93010; 94002; 94640; 94644; 94760; 95819; 96361; 96365; 96372; 96374; 96375; 96376; 97161; 97166; 97530; 97535; 99291-25; 99292; C1751; G0378; G0480; J1650; J1953; J1956; J2310; J2704; J3010; J7030; J7040

== ENCOUNTER 2019-04-10 11:46 | Emergency (ER) | payer OTHER ==
[~2019-04-10] VITALS: Ht 170.2 cm; Wt 113.4 kg
[2019-04-10 12:50] LABS: Source, Urine Clean Catch
[2019-04-10 12:51] LABS: BASOPHILS ABSOLUTE AUTO 0.04 K/mm3 (0.00-0.23); BASOPHILS PERCENT AUTO 0 % (0-2); EOSINOPHILS PERCENT AUTO 1 % (0-6); Hematocrit 41.6 % (33.0-51.0); IMMATURE GRAN ABSOLUTE AUTO 0.06 K/mm3 (0.00-0.10); IMMATURE GRAN PERCENT AUTO 1 % (0-1); LYMPHOCYTES PERCENT AUTO 18 % (21-46); MONOCYTES ABSOLUTE AUTO 0.49 K/mm3 (0.16-1.47); MONOCYTES PERCENT AUTO 5 % (4-13); Mean Corpuscular HGB 28.1 pg (26.0-34.0); Mean Corpuscular HGB Conc 31.3 g/dL (31.5-36.5); Mean Corpuscular Volume 90 fL (80-100); Mean Platelet Volume 10.2 fL (9.1-12.4); NEUTROPHILS ABSOLUTE AUTO 6.82 K/mm3 (1.96-9.15); NEUTROPHILS PERCENT AUTO 75 % (41-73); Platelet Count 230 K/mm3 (150-400); RDW Coefficient Variation 14.1 % (11.7-14.2); RDW Standard Deviation 46.5 fL (35.1-46.3); Red Blood Cell Count 4.62 M/mm3 (3.80-5.20); White Blood Cell Count 9.11 K/mm3 (4.00-11.30)
[2019-04-10 12:57] LABS: Bilirubin, Urine Neg (Neg); Blood, Urine Neg (Neg); Glucose Qualitative, Urine Neg (Neg); Ketones, Urine Neg (Neg); Leukocyte Esterase, Urine Neg (Neg); Nitrite, Urine Neg (Neg); Protein, Urine Neg (Neg); Urobilinogen, Urine NORM (Normal)
[2019-04-10 13:16] LABS: Appearance, Urine Clear (Clear); Color, Urine Yellow (P-Yellow)
[2019-04-10 13:19] LABS: International Normalized Ratio 0.99; Prothrombin Time Results 10.6 Sec (9.7-11.5)
[2019-04-10 13:28] LABS: Alanine Aminotransfer (ALT/SGP 35 U/L (12-78); Albumin, Blood 3.4 g/dL (3.4-5.0); Alk Phos 81 U/L (50-136); Anion Gap 7 mmol/L (6-16); Aspartate Aminotrans (AST/SGOT 29 U/L (12-37); Bilirubin, Total 0.2 mg/dL (0.1-1.0); Blood Urea Nitrogen 6 mg/dL (8-24); CO2, Blood 28 mmol/L (21-32); Calcium, Blood 9.2 mg/dL (8.5-10.1); Chloride, Blood 107 mmol/L (98-108); Globulin, Blood 3.5 g/dL (2.2-4.0); Glucose, Blood 85 mg/dL (70-99); Sodium, Blood 142 mmol/L (136-145); Total Protein, Blood 6.9 g/dL (6.4-8.2)
[2019-04-10 13:34] LABS: Bun/Creatinine Ratio 7.6 (12.0-20.0); Creatinine, Blood 0.79 mg/dL (0.40-1.00); Glomerular Filtration Rate >60 (60-)
[2019-04-10] MEDS ORDERED: Bentyl20 MG PO (14:29)
[2019-04-10] MEDS ORDERED: CIPRO500 M1 PO (14:29)
== END 2019-04-10 14:55 | disposition home or self-care (01) ==
LOC: ER 11:46
PROVIDERS: Emergency Medicine
DX: K52.9 Noninfective gastroenteritis and colitis, unspecified (principal); I11.0 Hypertensive heart disease with heart failure; I50.9 Heart failure, unspecified; J44.9 Chronic obstructive pulmonary disease, unspecified; M19.90 Unspecified osteoarthritis, unspecified site; E78.5 Hyperlipidemia, unspecified; I25.2 Old myocardial infarction; E11.9 Type 2 diabetes mellitus without complications; F17.200 Nicotine dependence, unspecified, uncomplicated; F20.9 Schizophrenia, unspecified; Z88.5 Allergy status to narcotic agent; Z88.8 Allergy status to other drugs, medicaments and biological substances; Z88.2 Allergy status to sulfonamides; Z88.0 Allergy status to penicillin; Z79.4 Long term (current) use of insulin; Z79.82 Long term (current) use of aspirin; Z79.899 Other long term (current) drug therapy
CPT/HCPCS: 36415; 74177; 80053; 81003; 82272; 85025; 85610; 85730; 86850; 86870; 86900; 86901; 96361; 96374-59; 96375; 99284-25; J1170; J2405; J7120; Q9967

== ENCOUNTER 2019-08-05 05:27 | Inpatient (IN) | payer OTHER ==
[~2019-08-05] VITALS: Ht 167.6 cm; Wt 114.7 kg
[~2019-08-05 05:27] MED LIST changes: +ATIVAN0.5 MG PO; +Accuneb0.63 MG/3 INH; +Bentyl20 MG PO; +CIPRO500 M1 PO; -CLON.1 PO; +Catapres0.2 MG PO; +Narcan 0.40.4 MG/ML; +ONDA4ODT MM; +Prinivil10 MG PO; +ROXICODONE15 MG PO; +ZOLP6.25 PO
[2019-08-05 06:12] LABS: BASOPHILS ABSOLUTE AUTO 0.03 K/mm3 (0.00-0.23); BASOPHILS PERCENT AUTO 0 % (0-2); EOSINOPHILS PERCENT AUTO 0 % (0-6); Hematocrit 48.6 % (33.0-51.0); Hemoglobin 15.7 g/dL (11.5-16.0); IMMATURE GRAN ABSOLUTE AUTO 0.09 K/mm3 (0.00-0.10); IMMATURE GRAN PERCENT AUTO 1 % (0-1); LYMPHOCYTES ABSOLUTE AUTO 0.69 K/mm3 (0.84-5.20); LYMPHOCYTES PERCENT AUTO 4 % (21-46); MONOCYTES ABSOLUTE AUTO 0.74 K/mm3 (0.16-1.47); MONOCYTES PERCENT AUTO 4 % (4-13); Mean Corpuscular HGB 27.5 pg (26.0-34.0); Mean Corpuscular HGB Conc 32.3 g/dL (31.5-36.5); Mean Corpuscular Volume 85 fL (80-100); Mean Platelet Volume 10.5 fL (9.1-12.4); NEUTROPHILS ABSOLUTE AUTO 16.79 K/mm3 (1.96-9.15); NEUTROPHILS PERCENT AUTO 92 % (41-73); Platelet Count 256 K/mm3 (150-400); RDW Coefficient Variation 14.6 % (11.7-14.2); RDW Standard Deviation 45.1 fL (35.1-46.3); White Blood Cell Count 18.34 K/mm3 (4.00-11.30)
[2019-08-05 06:32] LABS: Alanine Aminotransfer (ALT/SGP 41 U/L (12-78); Albumin, Blood 3.8 g/dL (3.4-5.0); Albumin/Globulin Ratio 0.9 (0.8-1.8); Alk Phos 191 U/L (50-136); Anion Gap 7 mmol/L (6-16); Aspartate Aminotrans (AST/SGOT 30 U/L (12-37); Bilirubin, Total 0.4 mg/dL (0.1-1.0); Blood Urea Nitrogen 14 mg/dL (8-24); Bun/Creatinine Ratio 19.9 (12.0-20.0); CO2, Blood 29 mmol/L (21-32); Calcium, Blood 9.5 mg/dL (8.5-10.1); Chloride, Blood 99 mmol/L (98-108); Globulin, Blood 4.1 g/dL (2.2-4.0); Glomerular Filtration Rate >60 (60-); Glucose, Blood 143 mg/dL (70-99); Potassium, Blood 4.1 mmol/L (3.5-5.5); Sodium, Blood 135 mmol/L (136-145); Total Protein, Blood 7.9 g/dL (6.4-8.2)
--- NOTE | 2019-08-05 10:30 | NUR ---
PATIENT ADMITTED TO ROOM 355, REPORT RECEIVED FROM RONAL MAYO IN ED. PATIENT ABLE TO TRANSFER TO BED INDEPENDENTLY. IV TO L INDEX FINGER WNL AND SL. PATIENT REPORTS PAIN TO ABDOMEN IS AN 8/10, WILL CONTACT PHYSICIAN FOR ORDERS. B/P ELEVATED, PATIENT STATES SHE DID NOT TAKE HER B/P MEDS THIS AM. PATIENT VOIDED AND URINE WAS VERY DARK AND HAD A FOUL ORDER. SAMPLE COLLECTED, WILL GET AN ORDER FOR A U/A. PATIENT IS A/OX4, CALM AND COOPERATIVE WITH CARE. ORIENTED PATIENT TO ROOM AND USE OF CALL LIGHT. AWAITING MD ORDERS.
[2019-08-05 11:38] LABS: Source, Urine Clean Catch
[2019-08-05 11:50] LABS: Blood, Urine 1+ (Neg); Glucose Qualitative, Urine Neg (Neg); Ketones, Urine 2+ (Neg); Leukocyte Esterase, Urine 1+ (Neg); Nitrite, Urine Pos (Neg); Protein, Urine 2+ (Neg); Urobilinogen, Urine 3+ (Normal)
[2019-08-05 12:12] LABS: Appearance, Urine Hazy (Clear); Bilirubin, Urine 2+ (Neg); Color, Urine Brown (P-Yellow)
[2019-08-05 12:13] LABS: Hyaline Casts 0-2 /lpf (0-2)
[2019-08-05 12:14] LABS: Bacteria Many /hpf; Squamous Epithelial Cells Few /hpf (Few)
[2019-08-05] MEDS ORDERED: CLON.1 PO (15:16)
--- NOTE | 2019-08-06 05:56 | NUR ---
STUDENT NURSE SUMMARY Patient slept off and on through the night. multiple watery and/or mushy bowel movements before midnight. Patient quite painful in lower abd/pelvic area. Two of her regular 15mg doses oxycodone, then in AM, requested breakthrough dilaudid. Estrella is A&OX4, able to move between the bed and commode, and very pleasant and cooperative with care. IV in left forefinger functioning well. Needs to be treated very gently as she really does not have any further sites we could visualize
[2019-08-06 06:14] LABS: BASOPHILS ABSOLUTE AUTO 0.03 K/mm3 (0.00-0.23); BASOPHILS PERCENT AUTO 0 % (0-2); EOSINOPHILS ABSOLUTE AUTO 0.15 K/mm3 (0.00-0.68); EOSINOPHILS PERCENT AUTO 1 % (0-6); Hematocrit 43.9 % (33.0-51.0); Hemoglobin 13.6 g/dL (11.5-16.0); IMMATURE GRAN ABSOLUTE AUTO 0.07 K/mm3 (0.00-0.10); IMMATURE GRAN PERCENT AUTO 1 % (0-1); LYMPHOCYTES ABSOLUTE AUTO 1.97 K/mm3 (0.84-5.20); LYMPHOCYTES PERCENT AUTO 14 % (21-46); MONOCYTES ABSOLUTE AUTO 1.04 K/mm3 (0.16-1.47); MONOCYTES PERCENT AUTO 8 % (4-13); Mean Corpuscular HGB 27.1 pg (26.0-34.0); Mean Platelet Volume 10.6 fL (9.1-12.4); NEUTROPHILS ABSOLUTE AUTO 10.39 K/mm3 (1.96-9.15); NEUTROPHILS PERCENT AUTO 76 % (41-73); Platelet Count 196 K/mm3 (150-400); RDW Coefficient Variation 15.1 % (11.7-14.2); RDW Standard Deviation 48.3 fL (35.1-46.3); Red Blood Cell Count 5.01 M/mm3 (3.80-5.20); White Blood Cell Count 13.65 K/mm3 (4.00-11.30)
[2019-08-06 06:16] LABS: Mean Corpuscular Volume 88 fL (80-100)
[2019-08-06 06:42] LABS: Anion Gap 4 mmol/L (6-16); Blood Urea Nitrogen 11 mg/dL (8-24); Bun/Creatinine Ratio 14.8 (12.0-20.0); CO2, Blood 28 mmol/L (21-32); Calcium, Blood 8.1 mg/dL (8.5-10.1); Chloride, Blood 103 mmol/L (98-108); Creatinine, Blood 0.74 mg/dL (0.40-1.00); Glomerular Filtration Rate >60 (60-); Glucose, Blood 93 mg/dL (70-99); Potassium, Blood 3.9 mmol/L (3.5-5.5); Sodium, Blood 135 mmol/L (136-145)
[2019-08-06 14:32] LABS: Stool Occult Bld Immuno 1 Negative (NEGATIVE)
--- NOTE | 2019-08-06 16:20 | NUR ---
Mrs. Oropeza was appreciative of prayer and encouragement. Her is very ill at home and she worries about him. She tells me he recinded hospice services recently. I will remain available.
--- NOTE | 2019-08-06 17:46 | NUR ---
PATIENT CONTINUES TO HAVE ABDOMENAL PAIN AND REQUESTS PAIN MEDICATION ATC, OXY Q4HRS AND IV DILAUDID Q3HRS. SOME RELIEF GIVEN FROM BOTH MEDICATIONS. BP LOW MID-DAY BUT ASIDE FROM THAT VITALS HAVE BEEN STABLE AND WNL. PATIENT HAS BEEN INDEPENDANT IN ROOM AND CALLS FOR STAFF ASSIST NEEDED. WILL CONTINUE TO MONITOR AND PROVIDE CARE NEEDED.
[2019-08-07 05:07] LABS: BASOPHILS ABSOLUTE AUTO 0.03 K/mm3 (0.00-0.23); BASOPHILS PERCENT AUTO 0 % (0-2); EOSINOPHILS ABSOLUTE AUTO 0.24 K/mm3 (0.00-0.68); EOSINOPHILS PERCENT AUTO 2 % (0-6); Hematocrit 43.8 % (33.0-51.0); Hemoglobin 13.6 g/dL (11.5-16.0); IMMATURE GRAN ABSOLUTE AUTO 0.05 K/mm3 (0.00-0.10); IMMATURE GRAN PERCENT AUTO 1 % (0-1); LYMPHOCYTES PERCENT AUTO 23 % (21-46); MONOCYTES ABSOLUTE AUTO 0.95 K/mm3 (0.16-1.47); MONOCYTES PERCENT AUTO 9 % (4-13); Mean Corpuscular HGB 27.4 pg (26.0-34.0); Mean Corpuscular HGB Conc 31.1 g/dL (31.5-36.5); Mean Corpuscular Volume 88 fL (80-100); Mean Platelet Volume 10.7 fL (9.1-12.4); NEUTROPHILS ABSOLUTE AUTO 7.29 K/mm3 (1.96-9.15); NEUTROPHILS PERCENT AUTO 66 % (41-73); Platelet Count 229 K/mm3 (150-400); RDW Coefficient Variation 15.1 % (11.7-14.2); Red Blood Cell Count 4.96 M/mm3 (3.80-5.20); White Blood Cell Count 11.06 K/mm3 (4.00-11.30)
[2019-08-07 05:30] LABS: Anion Gap 4 mmol/L (6-16); Blood Urea Nitrogen 9 mg/dL (8-24); Bun/Creatinine Ratio 12.3 (12.0-20.0); CO2, Blood 30 mmol/L (21-32); Calcium, Blood 8.5 mg/dL (8.5-10.1); Chloride, Blood 103 mmol/L (98-108); Creatinine, Blood 0.73 mg/dL (0.40-1.00); Glomerular Filtration Rate >60 (60-); Glucose, Blood 112 mg/dL (70-99); Potassium, Blood 4.2 mmol/L (3.5-5.5); Sodium, Blood 137 mmol/L (136-145)
--- NOTE | 2019-08-07 07:32 | NUR ---
Rn summary: Patient is alert and oriented. Pt has lower abdominal cramping pain that has improved during the night. She started out 8-11/12 this am was 08/12. Pt has received oxy 15mg q 4hours and dilaudid 1mg q3 hours. Pt was able to rest well. Pt is up independantly to BR. She has had some clear and full liquids and tolerated well. Call light in reach.
--- NOTE | 2019-08-07 13:43 | NUR ---
unable to re start iv, multiple attempts by charge nurse, asked dr what direction she wanted to proceed, she directed that abx and pain med should be converted to po, consulted with pharmacy and changed route to po, will continue to monitor and treat
--- NOTE | 2019-08-07 19:23 | NUR ---
a+o, pain not controlled with medication, diet changed, will continue to monitor and treat, no IV, call light in reach, 2L via nc, bsr shared with nurse and pt
--- NOTE | 2019-08-08 10:35 | NUR ---
ready and waiting to go home, working on orders, will review and assist pt as appropriate
[2019-08-08] MEDS ORDERED: CIPR500 PO (10:50)
[2019-08-08] MEDS ORDERED: DOCU100 PO (10:50)
[2019-08-08] MEDS ORDERED: Humalog100 UNIT/3 SC (10:52)
[2019-08-08] MEDS ORDERED: Flagyl500 MG PO (10:54)
[2019-08-08] MEDS ORDERED: LACT PO (10:54)
[2019-08-08] MEDS ORDERED: SENN187 PO (10:54)
== END 2019-08-08 11:29 | disposition home or self-care (01) | DRG 872 ==
LOC: ER 05:27 → MEDS 05:28 → ENPENDDIS 08-08 10:00 → MEDS 08-08 11:29
PROVIDERS: Emergency Medicine; Internal Medicine; ADMIT Internal Medicine
DX: A41.9 Sepsis, unspecified organism (principal); F11.20 Opioid dependence, uncomplicated; K50.118 Crohn's disease of large intestine with other complication; Z79.82 Long term (current) use of aspirin; Z79.4 Long term (current) use of insulin; J44.9 Chronic obstructive pulmonary disease, unspecified; F21 Schizotypal disorder; G40.909 Epilepsy, unspecified, not intractable, without status epilepticus; E78.5 Hyperlipidemia, unspecified; I25.2 Old myocardial infarction; Z96.643 Presence of artificial hip joint, bilateral; F17.210 Nicotine dependence, cigarettes, uncomplicated; G89.4 Chronic pain syndrome; J84.10 Pulmonary fibrosis, unspecified; Z99.81 Dependence on supplemental oxygen; K21.9 Gastro-esophageal reflux disease without esophagitis; B19.20 Unspecified viral hepatitis C without hepatic coma; Z96.652 Presence of left artificial knee joint; G47.00 Insomnia, unspecified; I10 Essential (primary) hypertension; E11.40 Type 2 diabetes mellitus with diabetic neuropathy, unspecified; B96.20 Unspecified Escherichia coli [E. coli] as the cause of diseases classified elsewhere; R82.71 Bacteriuria
CPT/HCPCS: 36415; 74176; 80048; 80053; 81001; 82274; 82947; 83605; 83690; 85025; 85651; 86140; 87040; 87077; 87086; 87186; 93005; 93010; 94760; 96361; 96374; 96375; 96376; 99285-25; A9270-GY; G0378; J0744; J1170; J1650; J2405; J3010; J3480; J7030; J7040

== ENCOUNTER 2019-08-18 20:33 | Inpatient (IN) | payer OTHER ==
[~2019-08-18] VITALS: Ht 167.6 cm; Wt 126.3 kg
[~2019-08-18 20:33] MED LIST changes: +BASAGLAR K100 UNIT/1 SC; +CLON.1 PO; +Flagyl500 MG PO; +Humalog100 UNIT/3 SC; +LACT PO
[2019-08-18] MEDS ORDERED: RISP4 PO (21:24)
[2019-08-18] MEDS ORDERED: RISP1 PO (21:24)
[2019-08-18 21:26] LABS: BASOPHILS ABSOLUTE AUTO 0.02 K/mm3 (0.00-0.23); BASOPHILS PERCENT AUTO 0 % (0-2); EOSINOPHILS ABSOLUTE AUTO 0.01 K/mm3 (0.00-0.68); EOSINOPHILS PERCENT AUTO 0 % (0-6); Hematocrit 53.6 % (33.0-51.0); Hemoglobin 16.6 g/dL (11.5-16.0); IMMATURE GRAN ABSOLUTE AUTO 0.19 K/mm3 (0.00-0.10); IMMATURE GRAN PERCENT AUTO 1 % (0-1); LYMPHOCYTES ABSOLUTE AUTO 0.87 K/mm3 (0.84-5.20); LYMPHOCYTES PERCENT AUTO 3 % (21-46); MONOCYTES PERCENT AUTO 4 % (4-13); Mean Corpuscular HGB 27.4 pg (26.0-34.0); Mean Corpuscular Volume 89 fL (80-100); Mean Platelet Volume 10.1 fL (9.1-12.4); NEUTROPHILS PERCENT AUTO 93 % (41-73); Platelet Count 414 K/mm3 (150-400); RDW Coefficient Variation 14.8 % (11.7-14.2); RDW Standard Deviation 47.7 fL (35.1-46.3); Red Blood Cell Count 6.05 M/mm3 (3.80-5.20); White Blood Cell Count 34.69 K/mm3 (4.00-11.30)
[2019-08-18 21:35] LABS: Calcium, Ionized (POC) 1.02 mmol/L (1.10-1.46); Chloride (POC) 103 mmol/L (98-108); Creatinine (POC) 1.1 mg/dL (0.6-1.0); Glucose (ISTAT POC) 236 mg/dL (70-99); Hemoglobin (POC) 20.1 g/dL (12.0-16.0); Potassium (POC) 5.3 mmol/L (3.5-5.5); Sodium (POC) 132 mmol/L (135-148); Total CO2 (POC) 22 mmol/L (21-32)
[2019-08-18 21:44] LABS: Alanine Aminotransfer (ALT/SGP 31 U/L (12-78); Albumin/Globulin Ratio 0.8 (0.8-1.8); Alk Phos 81 U/L (50-136); Anion Gap 6 mmol/L (6-16); Aspartate Aminotrans (AST/SGOT 22 U/L (12-37); Bilirubin, Total 0.5 mg/dL (0.1-1.0); Blood Urea Nitrogen 15 mg/dL (8-24); Bun/Creatinine Ratio 17.2 (12.0-20.0); CO2, Blood 31 mmol/L (21-32); Calcium, Blood 9.3 mg/dL (8.5-10.1); Chloride, Blood 98 mmol/L (98-108); Creatinine, Blood 0.87 mg/dL (0.40-1.00); Globulin, Blood 3.8 g/dL (2.2-4.0); Glomerular Filtration Rate >60 (60-); Glucose, Blood 179 mg/dL (70-99); Potassium, Blood 4.6 mmol/L (3.5-5.5); Sodium, Blood 135 mmol/L (136-145); Total Protein, Blood 6.8 g/dL (6.4-8.2); Troponin I <0.015 ng/mL (0.000-0.040)
[2019-08-18 22:03] LABS: Magnesium, Blood 2.7 mg/dL (1.6-2.4)
[2019-08-18 22:06] LABS: Source, Urine Catheter
[2019-08-18 22:13] LABS: Appearance, Urine Cloudy (Clear); Color, Urine Amber (P-Yellow); Glucose Qualitative, Urine Neg (Neg); Leukocyte Esterase, Urine 1+ (Neg); Nitrite, Urine Pos (Neg); Protein, Urine 1+ (Neg)
[2019-08-18 22:14] LABS: Bilirubin, Urine 1+ (Neg); Blood, Urine 1+ (Neg); Ketones, Urine 1+ (Neg); Urobilinogen, Urine 1+ (Normal)
[2019-08-18 22:20] LABS: Bacteria Many /hpf; Red Blood Cells, Urine 0-2 /hpf (0-2); Squamous Epithelial Cells Few /hpf (Few)
--- NOTE | 2019-08-19 02:56 | NUR ---
HAVING DIFFICULT TIME OBTAINING NIBP, MANUAL BP 80/DOPPLER, HR 140'S PATIENT AWAKE AND CONTINUES TO C/O ABD, AFTER FENTANYL 7/10 CRAMPING PAIN. CONTINUES TO HAVE INTERMITTENT NAUSEA WITH DRY HEAVES. SKIN COLD TO TOUCH, DEVRIES TEMP PROBE 101.3 LEVOPHED TITRATED UP TO 20 MCG. DOCTOR CONROY CALLED AND GIVEN UPDATE, SEE ORDERS.
[2019-08-19 04:42] LABS: BASOPHILS ABSOLUTE AUTO 0.08 K/mm3 (0.00-0.23); BASOPHILS PERCENT AUTO 1 % (0-2); Hematocrit 53.5 % (33.0-51.0); Hemoglobin 16.4 g/dL (11.5-16.0); LYMPHOCYTES ABSOLUTE AUTO 0.69 K/mm3 (0.84-5.20); LYMPHOCYTES PERCENT AUTO 4 % (21-46); MONOCYTES ABSOLUTE AUTO 0.73 K/mm3 (0.16-1.47); MONOCYTES PERCENT AUTO 4 % (4-13); Mean Corpuscular HGB 26.8 pg (26.0-34.0); Mean Corpuscular HGB Conc 30.7 g/dL (31.5-36.5); Mean Corpuscular Volume 88 fL (80-100); Mean Platelet Volume 10.1 fL (9.1-12.4); Platelet Count 386 K/mm3 (150-400); RDW Coefficient Variation 14.8 % (11.7-14.2); RDW Standard Deviation 47.4 fL (35.1-46.3); Red Blood Cell Count 6.11 M/mm3 (3.80-5.20); White Blood Cell Count 17.43 K/mm3 (4.00-11.30)
[2019-08-19 04:46] LABS: EOSINOPHILS PERCENT AUTO 0 % (0-6); IMMATURE GRAN ABSOLUTE AUTO 0.07 K/mm3 (0.00-0.10); IMMATURE GRAN PERCENT AUTO 0 % (0-1); NEUTROPHILS ABSOLUTE AUTO 15.86 K/mm3 (1.96-9.15); NEUTROPHILS PERCENT AUTO 91 % (41-73)
[2019-08-19 05:08] LABS: Alanine Aminotransfer (ALT/SGP 22 U/L (12-78); Albumin, Blood 2.2 g/dL (3.4-5.0); Albumin/Globulin Ratio 0.7 (0.8-1.8); Alk Phos 115 U/L (50-136); Anion Gap 6 mmol/L (6-16); Aspartate Aminotrans (AST/SGOT 19 U/L (12-37); Bilirubin, Total 0.6 mg/dL (0.1-1.0); Blood Urea Nitrogen 22 mg/dL (8-24); CO2, Blood 23 mmol/L (21-32); Calcium, Blood 8.9 mg/dL (8.5-10.1); Chloride, Blood 107 mmol/L (98-108); Globulin, Blood 3.3 g/dL (2.2-4.0); Glomerular Filtration Rate >60 (60-); Glucose, Blood 167 mg/dL (70-99); Potassium, Blood 4.5 mmol/L (3.5-5.5); Sodium, Blood 136 mmol/L (136-145); Total Protein, Blood 5.5 g/dL (6.4-8.2)
[2019-08-19 05:37] LABS: BAND PERCENT MAN 38 % (0-8); BASOPHILS PERCENT MAN 0 % (0-2); EOSINOPHILS PERCENT MAN 0 % (0-6); LYMPHOCYTES ABSOLUTE MAN 0.52 K/mm3 (0.84-5.20); LYMPHOCYTES PERCENT MAN 3 % (21-46); METAMYELOCYTE ABSOLUTE MAN 1.04 K/mm3 (0.00-0.00); METAMYELOCYTE PERCENT MAN 6 % (0-0); MONOCYTES ABSOLUTE MAN 0.52 K/mm3 (0.16-1.47); MONOCYTES PERCENT MAN 3 % (4-13); NEUTROPHILS ABSOLUTE MAN 15.33 K/mm3 (1.96-9.15); SEG NEUTROPHILS PERCENT MAN 50 % (41-73); TOTAL CELLS COUNTED 100
--- NOTE | 2019-08-19 07:20 | NUR ---
SUMMARY PATIENT AWAKE A&O X3, COLD AND DIAPHORETIC, FEVER 102.4 TYLENOL SUPPOSITORY GIVEN. HEART RATE CONTINUES 140'S WITH BBB THAT WIDENS AT TIMES, EKG DONE. CONTINUE TO HAVE DIFFICULTY OBTAINING BP, DOING DOPPLER BP'S SEE FLOWSHEET. NOW ON VASOPRESSIN, LEVOPHED, AND KYRA-SYNEPHRINE. MULTIPLE NS BOLUS. URINE DARK TEA COLOR. DOCTOR RAFIQ IN TO SEE PATIENT, HE SPOKE TO DOCTOR AMBER AND DOCTOR TOSIN AND DOCTOR KURTIS. SEE NEW ORDERS
[2019-08-19] MEDS ORDERED: LACT PO (07:59)
[2019-08-19] MEDS ORDERED: PROM25 PO (08:00)
--- NOTE | 2019-08-19 08:00 | NUR ---
ASSUMED CARE/INTUBATION BEDSIDE REPORT RECIEVED. UPON ENTERING ROOM PT IS AWAKE, ALERT, AND ORIENTED. PT APPEARS IN DISTRESS, IS DIAPHORETIC, AND ASHEN DIXON IN COLOR. PT ON [address] CONROY AND DR FOWLER AT BEDSIDE. DR CONROY INTUBATED PT AT 0734 WITH 7.5 ETT. RT AT BEDSIDE. PT RECIEVED 20 MG OF ETOMIDATE AND 2 MG VERSED IV. ETT SECURED AT 23 CM. BILAT BREATH SOUNDS AUSCULTATED. OG TUBE PLACED TO LIS. DARK BROWN OUTPUT NOTED WITH ETT SUCTION AND OGT SUCTION. PT WITH CL TO RIGHT IJ IN PLACE, NOT SUTURED. LEVOPHED INFUSING AT 30 MCG/MIN, VASOPRESSIN AT 0.04 UNITS/MIN, NEOSYNEPHRINE 100 MCG/MIN, NS AT 200 ML/HR, AND NS TKO. UNABLE TO OBTAIN NIBP. BP VIA DOPPLER 80-90'S SYSTOLIC. HR 130-140'S. DEVRIES IN PLACE DRAINING DARK CHUCK OUTPUT. DR FOWLER ATTEMPTED TO CONTACT PT SPOUSE WITHOUT SUCCESS. SBW RESTRAINTS PLACED. WILL CONTINUE TO MONITOR.
[2019-08-19 11:51] LABS: PCO2 Arterial 26.7 mmHg (35-45); pH Blood Arterial 7.33 (7.35-7.45)
--- NOTE | 2019-08-19 17:48 | NUR ---
SHIFT SUMMARY PT DOING BETTER THIS EVENING. PT REMAINS INTUBATED AND SEDATED. VENT SETTINGS AC 14, TV 400, PEEP 5, FIO2 50%. PT WITH CALVIN SECRETIONS WITH ETT SUCTION. OGT REMAINS IN PLACE TO LIS WITH DARK BROWN OUTPUT NOTED. PT VOMITED AROUND OGT ONCE THIS SHIFT WHILE TURNED ON SIDE. NO OTHER EPISODES OF EMESIS AROUND OGT. PT AROUSES TO VERBAL STIMULI AND IS ABLE TO FOLLOW COMMANDS. PT IS PAINFUL TO PALPATION OF ABDOMEN. PT MED PER EMAR. ARTERIAL LINE ACCESS TO RIGHT AXILLA INTACT. GOOD WAVEFORM NOTED. CL TO RIGHT IJ REMAINS C/D/I. PT PRESSOR REQUIREMENTS HAVE DECREASED THROUGHOUT THE DAY. SEE FLOW SHEET FOR TITRATIONS. LEVOPHED INFUSING AT 6 MCG/MIN, LR AT 125 ML/HR, NS TKO, PROTONIX 10 ML/HR, AND PROPOFOL AT 50 MCG/KG/MIN. VITAL SIGNS HAVE REMAINED STABLE WITH CONSISTENT BP READINGS S/P ART LINE PLACEMENT. DEVRIES TEMP PROBE REMAINS IN PLACE WITH DARK TEA COLORED OUTPUT. SBW RESTRAINTS IN PLACE. DR LEAHY HAS SEEN PT MULTIPLE TIMES THROUGHOUT THE SHIFT. NO NEW ORDERS AT THIS TIME. WILL CONTINUE TO MONITOR AND REPORT OFF TO ONCOMING RN.
--- NOTE | 2019-08-19 20:19 | NUR ---
PATIENT REMAINS INTUBATED AND SEDATED AWAKENS TO SLIGHT STIMULI, OPENING EYES SLIGHTLY AND FOLLOWING SIMPLE DIRECTIONS. ETT IN PLACE WITH VENT SET AT AC 14, TV 400, PEEP 5, FIO2 50%. PROPOFOL AT 50 MCG FOR SEDATION AND FENTANYL NEEDED FOR SIGNS OF PAIN. HYPOTENSION CONTINUES LEVOPHED AT 4 MCG. ART LINE TO RIGHT AXILLARY WITH GOOD WAVEFORM. OG IN PLACE TO LIS DRAINING DARK BROWN LIQUID. TEMP 101.8 CALL PLACED TO DOCTOR LEAHY FOR TYLENOL PER OG TUBE.
[2019-08-20 04:24] LABS: BASOPHILS ABSOLUTE AUTO 0.08 K/mm3 (0.00-0.23); BASOPHILS PERCENT AUTO 1 % (0-2); Hematocrit 42.7 % (33.0-51.0); Hemoglobin 13.4 g/dL (11.5-16.0); LYMPHOCYTES ABSOLUTE AUTO 0.58 K/mm3 (0.84-5.20); LYMPHOCYTES PERCENT AUTO 6 % (21-46); MONOCYTES ABSOLUTE AUTO 0.71 K/mm3 (0.16-1.47); MONOCYTES PERCENT AUTO 7 % (4-13); Mean Corpuscular HGB 27.1 pg (26.0-34.0); Mean Corpuscular HGB Conc 31.4 g/dL (31.5-36.5); Mean Corpuscular Volume 86 fL (80-100); Mean Platelet Volume 10.3 fL (9.1-12.4); Platelet Count 227 K/mm3 (150-400); RDW Coefficient Variation 15.5 % (11.7-14.2); RDW Standard Deviation 48.9 fL (35.1-46.3); Red Blood Cell Count 4.94 M/mm3 (3.80-5.20); White Blood Cell Count 9.84 K/mm3 (4.00-11.30)
[2019-08-20 04:27] LABS: EOSINOPHILS PERCENT AUTO 0 % (0-6); IMMATURE GRAN ABSOLUTE AUTO 0.48 K/mm3 (0.00-0.10); IMMATURE GRAN PERCENT AUTO 5 % (0-1); NEUTROPHILS ABSOLUTE AUTO 7.99 K/mm3 (1.96-9.15); NEUTROPHILS PERCENT AUTO 81 % (41-73)
[2019-08-20 04:45] LABS: Alanine Aminotransfer (ALT/SGP 25 U/L (12-78); Albumin, Blood 2.9 g/dL (3.4-5.0); Albumin/Globulin Ratio 1.1 (0.8-1.8); Alk Phos 167 U/L (50-136); Anion Gap 7 mmol/L (6-16); Aspartate Aminotrans (AST/SGOT 38 U/L (12-37); Bilirubin, Total 1.2 mg/dL (0.1-1.0); Blood Urea Nitrogen 23 mg/dL (8-24); Bun/Creatinine Ratio 32.4 (12.0-20.0); CO2, Blood 20 mmol/L (21-32); Calcium, Blood 8.1 mg/dL (8.5-10.1); Chloride, Blood 111 mmol/L (98-108); Creatinine, Blood 0.71 mg/dL (0.40-1.00); Globulin, Blood 2.6 g/dL (2.2-4.0); Glomerular Filtration Rate >60 (60-); Glucose, Blood 119 mg/dL (70-99); Phosphorus, Blood 1.9 mg/dL (2.5-4.9); Sodium, Blood 138 mmol/L (136-145); Total Protein, Blood 5.5 g/dL (6.4-8.2); Troponin I <0.015 ng/mL (0.000-0.040)
[2019-08-20 05:05] LABS: BAND PERCENT MAN 51 % (0-8); BASOPHILS ABSOLUTE MAN 0.09 K/mm3 (0.00-0.23); BASOPHILS PERCENT MAN 1 % (0-2); EOSINOPHILS PERCENT MAN 0 % (0-6); LYMPHOCYTES ABSOLUTE MAN 0.39 K/mm3 (0.84-5.20); LYMPHOCYTES PERCENT MAN 4 % (21-46); METAMYELOCYTE ABSOLUTE MAN 2.55 K/mm3 (0.00-0.00); METAMYELOCYTE PERCENT MAN 26 % (0-0); MONOCYTES ABSOLUTE MAN 0.39 K/mm3 (0.16-1.47); MONOCYTES PERCENT MAN 4 % (4-13); NEUTROPHILS ABSOLUTE MAN 6.39 K/mm3 (1.96-9.15); SEG NEUTROPHILS PERCENT MAN 14 % (41-73); TOTAL CELLS COUNTED 100
--- NOTE | 2019-08-20 06:09 | NUR ---
SUMMARY PATIENT REMAINS INTUBATED AND SEDATED, RESP IN THE 30'S T/O NIGHT UP TO THE 50'S WHEN AGITATED OR WHEN LAYING FLAT. VENT SET AT AC 14, TV 400, PEEP 5 FIO2 50%. PROPOFOL TITRATED UP TO 60 MCG, AND FENTANYL GIVEN APROX EVERY [address] OG REMAINS IN PLACE DRAINING LARGE AMT OF DARK BROWN LIQUID. ABD APPEARS FIRMER AND LARGER THIS MORNING, OG REMAINS TO LIS AND SUCTION CHECKED AND WORKING. DEVRIES DRAINING DARK ORANGE/TEA COLOR URINE. PATIENT COLD AND DIAPHORETIC OFF AND ON T/O NIGHT USUALLY RESOLVING WITH FENTANYL. TEMP CONTINUES T/O NIGHT DESPITE TYLENOL PER OG AND CLAMPING FOR 1/2 HR AFTER EACH DOSE. LEVOPHED TITRATED OFF, ART LINE REMAINS IN PLACE WITH GOOD WAVEFORM.
--- NOTE | 2019-08-20 07:15 | NUR ---
Received report from Slime Gray. Patient intubated and sedated. She has ET 7.5 23at lips and vent settings AC 14, TV 400, FiO2 50%, Peep 5.0 and sats low to mid 90%'s. She opens eys to painful stimuli. She has RIJ infusing Propofol at 60 mcg/kg/min, Protonix at 10 ml/hr, NS TKO, NS TKO, LR at 125ml/hr, and Levophed remains off with systolic 90-100's. OG in place with brown coffee ground output moderate amounts. She has Arterial line in RAC. Abdomen is firm and distended.She has 16Fr. Temp mccann draining coffee colored urine in small amounts < 50ml over las few hours. She has 24ga IV in LH and 20ga in left foot and both dressings intact and sites WNL's and are flushed and SL'd.
[2019-08-20 07:52] LABS: PCO2 Arterial 27.7 mmHg (35-45); PO2 Arterial 60.9 mmHg (80-100); pH Blood Arterial 7.41 (7.35-7.45)
--- NOTE | 2019-08-20 09:30 | NUR ---
Dr Porter has been anbd assessed patient and Patient working harder and vent settings changed to AC 14, TV 400, FiO2 65% and PEEP 8.0 and sats low 90%'s. Art Line remains intact and working, no other changes in gtt then ABX infusing. She continues to have 101.3-.7 temp with fan blowing and linens removed. Dr Porter contacting family and left message and awaiting call back. Medicated with Fentanyl for resp agitation and patient grimacing
[2019-08-20 10:38] LABS: International Normalized Ratio 1.27; Prothrombin Time Results 13.4 Sec (9.7-11.5)
--- NOTE | 2019-08-20 11:30 | NUR ---
No significant changes with patients conditions, sghe seems to have increased resp effort and medicated with versed to relax patient. No returmn call from family yet. Taled with mopther earlier this am and she stated that she would be coming by to see daughter. Systolic remains 90-100's. Medicated patient with versed 2mg for increased resp rate and agitation. Propofol remains at 60 mcg/kg/min and started Potassium phos.
--- NOTE | 2019-08-20 13:30 | NUR ---
Patient has been resting on sedation. Current vent setting AC14, TV 400, FiO2 60% and PEEP 8.0 with sats 90-93%. Propofol at 60 mcg/kg/min, Protonix 10 ml/hr, LR at 125ml/hr and ABX. Martin dark coffee colored urine. OG still has brown liquid with coffee ground output.Minimal response to painful stimuli. Fan on patient 101.5 and covers.
--- NOTE | 2019-08-20 15:30 | NUR ---
Mother and at bedside with pastoral care, Dr Porter has given full update of patient condition. They will go home and discuss with family. No changes with vent settings or gtt's.
--- NOTE | 2019-08-20 15:57 | NUR ---
Pt resting in bed and is intubated. No S/S of distress at this time. Pt's mother Juana is at bedside. Engaged in supportive therapeutic conversation and offered therapeutic listening. Listened as Juana discusses the tragic medical events many of her family members have gone through over the recent past including her passing away last year, and an law who past from cancer. Juana reports Pt's is ill and is close to going onto hospice. Listened as Juana questions if a biopsy should even be pursued due to Pt's extensive medical issues. Instructed on the importance of spouse and family determining Pt's wishes and whether she would want to pursue cancer treatment or if she could tolerate treatment. Continued therapeutic listening and answered questions. Juana expresses appreciation of visit. Provided Palliative Care contact information and instructed Juana to call with any questions or concerns. Spoke with Bedside RN Kamron and discussed case. Palliative Care will remain available for therapeutic visits.
--- NOTE | 2019-08-20 17:24 | NUR ---
Initial spiritual care note: I met with Zeynep's spouse and mother at bedside. Spouse appears extremely frail and tells me he is fighting his own poor prognosis. Anuradha's mom appeared to understand that Anuradha is seriously ill. Both are awaiting further tests results and physician guidence. Encouraged self care, provided assurance of care and affirmed obvious love. Offered continued prayer and emotional support.
--- NOTE | 2019-08-20 17:30 | NUR ---
Patient vent settings AC 14, TV 400, FiO2 60%, PEEP 5.0 with sats low 90%. Propofol 60 mcg/kg/min, LR at 125ml/hr. OG continues with liquid brown and coffee ground output. She had 375 coffee colored urine out of 16Fr. Martin and temp at 101.8. RAC Art line intact and working with systolics 80-90's.
--- NOTE | 2019-08-20 19:20 | NUR ---
UPDATE: PT GIVEN VERSED FOR SEDATION ADJUNCT. PT GRIMICING, PAIN MEDS GIVEN PER EMAR. WILL CONTINUE TO MONITOR PT.
--- NOTE | 2019-08-20 20:22 | NUR ---
ASSUMED CARE NOTE: ASSUMED CARE OF PT AT 1900, RECEVIED REPORT FROM MARTINEZ VILLEDA. PT IS INTUBATED AND SEDATED WITH 60MCG/KG/MIN PROPOFOL. PT VENT SETTINGS ARE AC14/400/8/60%, SPO2 @ 93% RR BETWEEN 40-45 BPM. PT GRIMICING, DIAPHORECTIC, DILAUDID GIVEN FOR PAIN PER EMAR. OGT TO LIS, DRAINING DRAK BROWN LIQUID. PT IN SINUS TACH WITH HR IN THE 130'S. SOFT PRESSURES NOTED. FAINT PULSES NOTED TO ALL EXTREMITIES. ABDOMEN FIRM, AND DISTENTED. DEVRIES PATENT AND DRAINING TEA COLORED URINE. PT RUNNING A TEMP OF 101.8, ACETAMINOPHEN GIVEN PER EMAR. BED AT LOWEST LEVEL, BILAT SWR IN PLACE. WILL CONTINUE TO MONITOR PT T/O SHIFT.
--- NOTE | 2019-08-20 23:20 | NUR ---
UPDATE: PT FiO2 INCREASED TO 70%, SPO2 @ 91%. PT PRODUCING CALVIN COLORED SPUTUM. RR INTO THE HIGH 40'S. PT RESPONSIVE TO VERBAL SIMULI, UNABLE TO FOLLOW COMMANDS. WILL CONTINUE TO MONITOR PT.
--- NOTE | 2019-08-21 02:15 | NUR ---
SEDATION VACATION: PROPOFOL TITRATED TO 40MCG/KG/MIN, PT THEN BEGAN TO OPEN EYES SPONTANEOUSLY. PT ALERT AND ABLE TO FOLLOW COMMANDS. PT'S WORK OF BREATHING INCREASED, SHALLOW BREATHING NOTED. WHEN ASKED IF SHE WAS IN PAIN, SHE NODDED "YES" DILAUDID GIVEN PER EMAR. PT PROPOFOL INCREASED TO 50MCG/KG/MIN. PT OFF OF PRESSORS. BP STABLE
[2019-08-21 03:41] LABS: Hematocrit 40.9 % (33.0-51.0); Hemoglobin 13.3 g/dL (11.5-16.0); Mean Corpuscular HGB Conc 32.5 g/dL (31.5-36.5); Mean Corpuscular Volume 86 fL (80-100); Mean Platelet Volume 10.4 fL (9.1-12.4); NRBC ABSOLUTE 0.02 K/mm3 (0.00-0.02); NRBC Auto 0.1 /100 WBC (0.0-0.2); Platelet Count 241 K/mm3 (150-400); RDW Coefficient Variation 15.7 % (11.7-14.2); RDW Standard Deviation 49.6 fL (35.1-46.3); Red Blood Cell Count 4.75 M/mm3 (3.80-5.20); White Blood Cell Count 14.31 K/mm3 (4.00-11.30)
[2019-08-21 03:58] LABS: BAND PERCENT MAN 42 % (0-8); BASOPHILS PERCENT MAN 0 % (0-2); EOSINOPHILS PERCENT MAN 0 % (0-6); LYMPHOCYTES ABSOLUTE MAN 0.85 K/mm3 (0.84-5.20); LYMPHOCYTES PERCENT MAN 6 % (21-46); METAMYELOCYTE ABSOLUTE MAN 0.57 K/mm3 (0.00-0.00); METAMYELOCYTE PERCENT MAN 4 % (0-0); MONOCYTES ABSOLUTE MAN 0.85 K/mm3 (0.16-1.47); MONOCYTES PERCENT MAN 6 % (4-13); MYELOCYTE ABSOLUTE MAN 0.42 K/mm3 (0.00-0.00); MYELOCYTE PERCENT MAN 3 % (0-0); NEUTROPHILS ABSOLUTE MAN 11.59 K/mm3 (1.96-9.15); SEG NEUTROPHILS PERCENT MAN 39 % (41-73); TOTAL CELLS COUNTED 100
[2019-08-21 04:07] LABS: Albumin, Blood 1.9 g/dL (3.4-5.0); Anion Gap 7 mmol/L (6-16); Blood Urea Nitrogen 35 mg/dL (8-24); Bun/Creatinine Ratio 35.3 (12.0-20.0); CO2, Blood 19 mmol/L (21-32); Calcium, Blood 7.3 mg/dL (8.5-10.1); Chloride, Blood 112 mmol/L (98-108); Creatinine, Blood 0.99 mg/dL (0.40-1.00); Glomerular Filtration Rate >60 (60-); Glucose, Blood 132 mg/dL (70-99); Phosphorus, Blood 2.5 mg/dL (2.5-4.9); Potassium, Blood 4.1 mmol/L (3.5-5.5); Sodium, Blood 138 mmol/L (136-145)
--- NOTE | 2019-08-21 05:33 | NUR ---
[place] [employer]ING REMOVED AND GIVEN TO SECURITY. RECEIPT IN CHART.
--- NOTE | 2019-08-21 05:37 | NUR ---
SHIFT SUMMARY: PT CONTINUES TO BE SEDATED AND VENTED, PROPOFOL GOING AT 50MCG/KG/MIN AND SETTINGS TO VENT ARE AC14/400/8/70%, SPO2 92% RR HAVE BEEN BETWEEN 30-49 BPM T/O SHIFT. SEDATION VACATION WAS PERFORMED THIS SHIFT SEE " SEDATION VACATION" NOTE. OGT TO LIS, 400ML OF GREEN LIQUID OUTPUT. SUCTION AND TUBING CANISTER CHANGED. PT ON CONTINUOUS PROTONIX DRIP. PT GRIMACES WHEN ABDOMEN IS PALPATED. PT GIVEN DILAUDID WAS PER EMAR. PT WAS ALSO GIVEN VERSED T/O SHIFT FOR VENT TOLERANCE. PULSES ARE FAINT T/O ALL EXTEMITIES. PT HAS BEEN IN SINUS TACH T/O SHIFT HR IN THE 80'S. PT WAS PLACED ON LEVOPHED EARLIER IN THE SHIFT DUE TO LOW MAP'S. PT IS NOW OFF OF LEVOPHED AND MAP IS MAINTAINING ABOVE 65. DEVRIES IS PATENT AND DRAINING TEA COLORED URINE. PT TEMP HAS BEEN BETWEEN 100.8-101.8. PT IS CLAMMY AND DIAPHORETIC. WILL CONTINUE TO MONITOR PT UNTIL REPORT IS GIVEN TO ONCOMING SHIFT. BILAT SWR IN PLACE, BED AT LOWEST LEVEL.
[2019-08-21 11:24] LABS: Vancomycin, Trough 22.2 ug/mL (5.0-10.0)
--- NOTE | 2019-08-21 12:01 | NUR ---
REASSESSMENT PT REMAINS SEDATED AND VENTED. RESPIRATIONS REMAIN IN THE 40S AND HR IN THE 120-130S DESPITE PAIN MEDICATION OR OTHER MEASURES TO INCREASE COMFORT, DR. LEAHY AWARE. LUNGS ARE CLEAR. MINIMAL SECRETIONS. BP STABLE OFF OF PRESSORS. ABDOMEN REMAINS MODERATELY DISTENDED AND TENDER. FEW QUIET BOWEL SOUNDS AUSCULTATED. ABOUT 400CC OF BROWN OUTPUT FROM OG. PLAN TO START TRICKLE FEEDS TODAY. SKIN REMAINS PALE, FOREHEAD CLAMMY. FEBRILE RIGHT AROUND 101F THROUGHOUT THE MORNING. URINE REMAINS DARK TEA COLORED, BUT MAKING MORE THAN 30ML/HR. SPOKE WITH PT'S NATACHA AND MOTHER THIS MORNING AND PROVIDED UPDATES. CONTINUING TO MONITOR.
--- NOTE | 2019-08-21 16:06 | NUR ---
SHIFT SUMMARY PT REMAINED SEDATED AND INTUBATED TODAY. HER RESPIRATORY STATUS IS UNCHANGED FROM THIS MORNING. RR STILL IN THE 40S AND FIO2 70%. LUNGS ARE CLEAR AND SCANT SECRETIONS. HR REMAINS IN THE 120S, SINUS. BP STABLE WITHOUT PRESSORS. PT IS OPENING HER EYES AND TRACKS PEOPLE IN THE ROOM WHEN BEING REPOSITIONED OR TOUCHED, EVEN ON PROPOFOL. TRICKLE FEEDS STARTED AND PT TOLERATING SO FAR WITH 60ML RESIDUAL. ASPIRATE IS MORE GREEN THAN BROWN IN COLOR NOW. ABDOMEN REMAINS DISTENDED AND TENDER. DEVRIES PUT OUT 1800ML. URINE COLOR LIGHTENED AFTER RECEIVING LASIX BUT STILL A LIGHT TEA COLOR. PT IS NOT DIAPHORETIC THIS MORNING, BUT STILL A LITTLE CLAMMY. FEVER UNCHANGED THROUGHOUT THE DAY. PT'S SON CAME IN TODAY AND WAS UPDATED BY NURSING STAFF AND DR. LEAHY. CONTINUING TO MONITOR.
--- NOTE | 2019-08-21 19:40 | NUR ---
ASSESSMENT/ASSUMED CARE PT INTUBATED AND ON [facility] VENT. SEDATED WITH PROPOFOL BUT PT OPENS EYES AND FOLLOWS INSTRUCTIONS TO VERBAL STIMULI. LUNGS CLEAR BUT DECREASED IN THE BASES. VENT SETTINGS AC 14 TV 400 PEEP 8 FIO2 70%. SUCTIONED THICK CALVIN SECRECTIONS VIA ET TUBE. HEART RATE TACHY 110'S. BP STABLE. ART LINE TO RIGHT AXILLARY, SITE CLEAR. ZEROED ART LINE. CENTRAL LINE TO RIGHT IJ, SITE CLEAR. LR AT 50 ML/HR, PROTONIX AT 10 ML/HR AND PROPOFOL AT 50 MCQ/KG/HR. BT+ HYPOACTIVE. OG WITH TUBE FEED VITAL HP AT 10 ML/HR WITH 30 ML WATER Q4HR. RESIDUAL 70 ML REFED. ABD TENDER. BED BATH GIVEN AND PT REPOSITONED. DEVRIES PATENT DRAINING DARK CHUCK URINE. BILAT SOFT WRIST RESTRAINTS ON.
[2019-08-21 21:21] LABS: Creatinine, Blood 0.78 mg/dL (0.40-1.00); Vancomycin, Random 12.2 ug/mL
--- NOTE | 2019-08-21 22:11 | NUR ---
PAIN PT REPOSITIONED TO LEFT. NODS HEAD YES WHEN ASKED IF IN PAIN. MED WITH DILAUDID 1 MG.
--- NOTE | 2019-08-22 02:12 | NUR ---
TEMP TEMP UP TO 100.8, MED WITH ADVIL 200MG VIA TUBE. REPOSITIONED PT. FAN ON AND BLANKETS REMOVED.
[2019-08-22 04:12] LABS: Hematocrit 33.5 % (33.0-51.0); Hemoglobin 10.9 g/dL (11.5-16.0); Mean Corpuscular HGB 27.7 pg (26.0-34.0); Mean Corpuscular HGB Conc 32.5 g/dL (31.5-36.5); Mean Corpuscular Volume 85 fL (80-100); Mean Platelet Volume 10.5 fL (9.1-12.4); NRBC ABSOLUTE 0.04 K/mm3 (0.00-0.02); NRBC Auto 0.4 /100 WBC (0.0-0.2); Platelet Count 200 K/mm3 (150-400); RDW Coefficient Variation 15.5 % (11.7-14.2); Red Blood Cell Count 3.93 M/mm3 (3.80-5.20); White Blood Cell Count 9.64 K/mm3 (4.00-11.30)
[2019-08-22 04:38] LABS: Albumin, Blood 2.4 g/dL (3.4-5.0); Anion Gap 5 mmol/L (6-16); Blood Urea Nitrogen 29 mg/dL (8-24); Bun/Creatinine Ratio 38.2 (12.0-20.0); CO2, Blood 25 mmol/L (21-32); Calcium, Blood 7.1 mg/dL (8.5-10.1); Chloride, Blood 110 mmol/L (98-108); Creatinine, Blood 0.76 mg/dL (0.40-1.00); Glomerular Filtration Rate >60 (60-); Glucose, Blood 120 mg/dL (70-99); Magnesium, Blood 2.3 mg/dL (1.6-2.4); Potassium, Blood 2.6 mmol/L (3.5-5.5); Sodium, Blood 140 mmol/L (136-145)
[2019-08-22 04:44] LABS: Phosphorus, Blood 0.8 mg/dL (2.5-4.9)
[2019-08-22 05:59] LABS: BAND PERCENT MAN 27 % (0-8); BASOPHILS PERCENT MAN 0 % (0-2); EOSINOPHILS PERCENT MAN 0 % (0-6); LYMPHOCYTES ABSOLUTE MAN 1.63 K/mm3 (0.84-5.20); LYMPHOCYTES PERCENT MAN 17 % (21-46); METAMYELOCYTE ABSOLUTE MAN 0.28 K/mm3 (0.00-0.00); METAMYELOCYTE PERCENT MAN 3 % (0-0); MONOCYTES ABSOLUTE MAN 0.28 K/mm3 (0.16-1.47); MONOCYTES PERCENT MAN 3 % (4-13); MYELOCYTE ABSOLUTE MAN 0.28 K/mm3 (0.00-0.00); MYELOCYTE PERCENT MAN 3 % (0-0); NEUTROPHILS ABSOLUTE MAN 7.13 K/mm3 (1.96-9.15); SEG NEUTROPHILS PERCENT MAN 47 % (41-73); TOTAL CELLS COUNTED 100
--- NOTE | 2019-08-22 06:04 | NUR ---
SHIFT SUMMARY PT CONT INTUBATED AND [facility]. AWAKENS TO VERBAL STIMULI. MED WITH DILAUDID DURING THE NIGHT FOR ABD PAIN. PT FOLLOWING INSTRUCTIONS AND NODDING HEAD YES/NO. BILAT SOFT WRIST RESTRAINTS ON. LUNGS CLEAR TO COARSE BUT DECREASED IN THE BASES. VENT SETTINGS AC 14 TV 400 PEEP 8 FIO2 70%. SUCTIONING CALVIN SECRECTIONS VIA ET TUBE. HEART RATE 110-120. TEMP UP TO 100.8 DURING THE NIGHT MED WITH TYLENONL AND IBUPROFEN, CURRENT TEMP DOWN TO 99.9. BLANKETS OFF AND FAN ON PT. PT TURNED Q2HRS. BT+ HYPOACTIVE. TUBE FEED VITAL HP AT 10 ML/HR. HIGH RESIDUALS NOTED DURING THE NIGHT. REGLAN STARTED. CENTRAL LINE AND ART LINE DRSG INTACT. REPORT TO ON COMING NURSE
--- NOTE | 2019-08-22 08:00 | NUR ---
PT REMAINS INTUBATED, SEDATED, AND RESTRAINED. SHE OPENS EYES TO VOICE AND FOLLOWS COMMANDS ON PROPOFOL @ 50 MCG/KG/MIN. PT IS GRIMACING, APPEARS TENSE AND SOMEWHAT AGITATED. RR 40'S. PT NODS "YES" TO ABDOMINAL PAIN. MED WITH DILAUDID 1 MG IVP-SEE EMAR. ECG CONTINUES ST WITH RATE 100-120'S. PT REMAINS FEBRILE. 1+ EDEMA TO BILATERAL LOWER EXTREMITIES-EXTREMITIES ELEVATED ON PILLOWS. LUNGS COARSE TO LEFT UPPER LOBE AND DIMINISHED THROUGH OUT. ETT TO VENT: AC 14, TV 400, FIO2 70%, AND PEEP 8. SATS>90%. ETT SUCTION OCCASIONALLY PRODUCTIVE OF A SMALL AMOUNT OF THICK, CALVIN SECRETIONS. OGTF WITH 70 CC RESIDUAL-REFED. ABDOMEN IS DISTENDED AND TENDER TO PALPATION. HYPOACTIVE BT'S AUSCULTATED. DEVRIES WITH SMALL AMOUNT OF DARK, CHUCK URINE TO UROMETER-ROUTINE AM LASIX GIVEN SEE EMAR. KPHOS REPLACEMENT INFUSING.
--- NOTE | 2019-08-22 10:00 | NUR ---
PT CONTINUES TO NOD "YES" TO ABDOMINAL PAIN DESPITE MED WITH FENTANYL. DR. EVANS AWARE AND ORDERS GIVEN. PT IS DIAPHORETIC AND TACHYPNEIC-RR 32-40. SATS>90% ON FIO2 60% DR. EVANS ADJUSTED FIO2 DURING HER ROUNDS.
--- NOTE | 2019-08-22 10:00 | NUR ---
PHOTO TAKEN OF LEFT ANKLE REDNESS AND HEEL PROTECTORS PLACED BILATERALLY.
--- NOTE | 2019-08-22 11:36 | NUR ---
PT CONTINUE TO BE QUITE AWAKE AND RESTLESS. RR 40'S. PT GRIMACING AND CONTIUES TO NOD "YES" TO PAIN-FENTANYL CONTINUOUS DRIP INITIATED AT 50 MCG/HR-SEE EMAR.
--- NOTE | 2019-08-22 14:26 | NUR ---
PT STILL QUITE AWAKE AND RESTLESS. PT NODS "YES" WHEN ASKED IF ANXIOUS. PT NODS "YES" WHEN ASKED IF SHE HAS TAKEN ATIVAN IN THE PAST. PT ALSO, NODS "YES" WHEN ASKED IF THE ATIVAN WAS HELPFUL FOR HER ANXIETY. PT GRIMACING AND APPEARS TENSE. DR. EVANS UPDATED-PT MED WITH ATIVAN 2 MG IVP X1 FOR ANXIETY.
--- NOTE | 2019-08-22 15:37 | NUR ---
PT AND SISTER IN FOR VISIT. UPDATED TO CURRENT VS AND STATUS. DR. EVANS IN TO DISCUSS PLAN OF CARE-PT TO BE DNR STATUS.
--- NOTE | 2019-08-22 16:27 | NUR ---
ASSUMED CARE: REPORT RECEIVED FROM RONAL JOEL. PT INTUBATED 14/400/60/8. ART LINE IN PLACE, VSS, TUBE FEED CHANGED WITH RATE OF 20/HR. DEVRIES CATH IN PLACE WITH TEA COLORED URINE NOTED. FAMILY SPOKE WITH WISAM AND DNR BAND PLACED. FAMILY LEFT FOR THE DAY. RT AT BEDSIDE PLACING PT ON VEST. NO FURTHER NEEDS OR CONCERNS.
--- NOTE | 2019-08-22 18:10 | NUR ---
SHIFT SUMMARY: PT REMAINS SINUS TACH IN 120S AT THIS TIME. INTUBATED, AC 14/400/8/60%. OG IN PLACE WITH 70MLS RESIDUAL PER CHECK. FAMILY WAS AT BEDSIDE TODAY AND MADE PT DNR. PURPLE BAND IN PLACE. PROPOFOL AT 40MCG/KG/MIN. ART LINE IN PLACE WITH VSS. NO FURTHER NEEDS OR CONCERNS AT THIS TIME.
--- NOTE | 2019-08-22 22:00 | NUR ---
ASSUMPTION OF CARE I ASSUMED CARE OF THIS PT @ 1900, PT INTUBATED AND SEDATED, AROUSES TO VERBAL STIMULI, ANSWERS YES/NO QUESTIONS AND FOLLOWS DIRECTIONS. PROPOFOL INFUSING @ 40mcg/kg/min, FENTANYL GTT INFUSING AT 50mcg/hr- INCREASED TO 75mcg/hr FOR PAIN MANAGEMENT (SEE FLOWSHEET FOR TITRATIONS). VENT SET TO AC 14/400/8/60%. MONITOR SHOWS SINUS RHYTHM WITH HR 110-120'S, BP STABLE, ARTLINE ZEROED. TEMPERATURE 101.5, IBUPROFEN ADMINISTERED, FAN ON AT BEDSIDE. MEPILEX HEEL PROTECTORS IN PLACE, R FOOT FLACCID, WEDGE HEEL PROTECTOR BOOT APPLIED TO R FOOT. TF INFUSING @ 20ml/hr, LOW RESIDUALS. DEVRIES IN PLACE DRAINING ORANGE TO GREEN URINE.
[2019-08-22 22:21] LABS: Vancomycin, Trough 13.5 ug/mL (5.0-10.0)
[2019-08-23 04:40] LABS: Hematocrit 35.6 % (33.0-51.0); Hemoglobin 11.8 g/dL (11.5-16.0); Mean Corpuscular HGB 27.7 pg (26.0-34.0); Mean Corpuscular HGB Conc 33.1 g/dL (31.5-36.5); Mean Corpuscular Volume 84 fL (80-100); Mean Platelet Volume 10.7 fL (9.1-12.4); NRBC ABSOLUTE 0.04 K/mm3 (0.00-0.02); NRBC Auto 0.3 /100 WBC (0.0-0.2); Platelet Count 198 K/mm3 (150-400); RDW Coefficient Variation 15.8 % (11.7-14.2); Red Blood Cell Count 4.26 M/mm3 (3.80-5.20); White Blood Cell Count 15.89 K/mm3 (4.00-11.30)
[2019-08-23 04:57] LABS: Albumin, Blood 2.1 g/dL (3.4-5.0); Anion Gap 8 mmol/L (6-16); Blood Urea Nitrogen 29 mg/dL (8-24); Bun/Creatinine Ratio 45.8 (12.0-20.0); CO2, Blood 22 mmol/L (21-32); Calcium, Blood 7.5 mg/dL (8.5-10.1); Chloride, Blood 113 mmol/L (98-108); Creatinine, Blood 0.63 mg/dL (0.40-1.00); Glomerular Filtration Rate >60 (60-); Glucose, Blood 128 mg/dL (70-99); Magnesium, Blood 2.4 mg/dL (1.6-2.4); Phosphorus, Blood 1.4 mg/dL (2.5-4.9); Potassium, Blood 3.2 mmol/L (3.5-5.5); Sodium, Blood 143 mmol/L (136-145)
[2019-08-23 06:56] LABS: BAND PERCENT MAN 33 % (0-8); BASOPHILS PERCENT MAN 0 % (0-2); EOSINOPHILS ABSOLUTE MAN 0.31 K/mm3 (0.00-0.68); EOSINOPHILS PERCENT MAN 2 % (0-6); LYMPHOCYTES ABSOLUTE MAN 1.11 K/mm3 (0.84-5.20); LYMPHOCYTES PERCENT MAN 7 % (21-46); METAMYELOCYTE ABSOLUTE MAN 0.79 K/mm3 (0.00-0.00); METAMYELOCYTE PERCENT MAN 5 % (0-0); MONOCYTES ABSOLUTE MAN 0.47 K/mm3 (0.16-1.47); MONOCYTES PERCENT MAN 3 % (4-13); MYELOCYTE ABSOLUTE MAN 1.11 K/mm3 (0.00-0.00); MYELOCYTE PERCENT MAN 7 % (0-0); NEUTROPHILS ABSOLUTE MAN 11.75 K/mm3 (1.96-9.15); PROMYELOCYTE ABSOLUTE MAN 0.31 K/mm3 (0.00-0.00); PROMYELOCYTE PERCENT MAN 2 % (0-0); SEG NEUTROPHILS PERCENT MAN 41 % (41-73); TOTAL CELLS COUNTED 100
--- NOTE | 2019-08-23 07:52 | NUR ---
SHIFT SUMMARY NO ACUTE CHANGES THIS SHIFT, PT REMAINS INTUBATED AND SEDATED, VENT SET TO AC 14/400/8/60%, PROPOFOL AND FENTANYL GTT INFUSING FOR SEDATION AND PAIN MANAGEMENT (SEE FLOWSHEET FOR TITRATIONS), PT REMAINS AROUSABLE TO VERBAL STIMULI, FOLLOWS DIRECTIONS, PROFOUNDLY WEAK T/O. PT REPORTS CONTINUED ABD PAIN, GRIMACES WITH NURSING CARE AND REPOSITIONING. RESPIRATORY RATE REMAINS 30'S-40'S, MONITOR SHOWS SINUS TACH WITH HR 110-120'S, BP STABLE PER ARTLINE. TF INFUSING @20ml/hr, BT HYPOACTIVE, NO BM THIS SHIFT. TYLENOLY AND IBUPROFEN ADMINISTERED THIS SHIFT FOR FEVER, TMAX 101.5. REPORT GIVEN TO CAITLYN VILLEDA.
--- NOTE | 2019-08-23 08:00 | NUR ---
PT REMAINS INTUBATED, SEDATED, AND RESTRAINED. PT NODS "YES" TO BOTH PAIN AND ANXIETY THIS AM. PT ORIENTED TO SELF AND FOLLOWING COMMANDS. GENERALLY WEAK. FOOT DROP NOTED TO RIGHT LOWER EXTREMITY-BOOT IN PLACE. PROPOFOL DRIP @ 35 MCG/KG/MIN AND FENTANYL CONTINUOUS @ 75 MCG/HR. PT REMAINS FEBRILE. ECG SHOWS ST 110-120'S. SBP 90-110'S PER RIGHT AXILLARY A-LINE. EDEMA NOTED 2+ TO UPPER AND LOWER EXTREMITIES-ELEVATED ON PILLOWS. ETT TO VENT: AC 16, TV 400, PEEP 8, FIO2 60%. RR 40'S, BUT SATS >90%. ETT SUCTION PRODUCTIVE OF SMALL AMOUNT OF THICK, WHITE SPUTUM. OGTF WITH 105 CC RESIDUAL REFED. TF CONTINUES @ 20 ML/HR. NO BM SINCE 08/16/19. ABDOMEN APPEARS MORE DISTENDED THAN 08/22/19. BT'S ABSENT EXCEPT FOR A FEW, VERY HYPOACTIVE BT'S TO RIGHT LOWER QUADRANT. PT APPEARS TO GRIMACE MORE WHEN LEFT, LOWER QUADRANT IS PALPATED. DEVRIES WITH ADEQUATE AMOUNT OF TEA COLORED URINE. KPHOS+ REPLETION INFUSING. BILATERAL HEEL PROTECTORS IN PLACE.
--- NOTE | 2019-08-23 09:15 | NUR ---
DR. EVANS UPDATED TO CURRENT VS AND STATUS. VENT SETTINGS CHANGED BY DR. EVANS TO TV 500, AND FIO2 50%-PT RR IN THE 20'S-SATS>90% LACTIC, BCX2, VBG ORDERED.
--- NOTE | 2019-08-23 09:45 | NUR ---
IAP MEASURED PER DR. EVANS REQUEST-IAP 11. ABDOMEN APPEARS MUCH MORE DISTENDED THAN 08/21 ASSESSMENT. PT APPEARS TO HAVE MORE DISCOMFORT ON PALPATION OF THE LEFT, LOWER QUADRANT. FEW HYPO ACTIVE BT'S AUSCULTATED TO RIGHT LOWER QUADRANT ONLY.
--- NOTE | 2019-08-23 12:11 | NUR ---
Supportive visit today. Pt intubated and appears comfortable. Pt's mother and son at bedside. Listened as mother Juana reports family being on board with Pt being DNR and would not want Pt to receive trach. If Pt does not improve and unable to be extubated then family will revisit goals of care and consider comfort care. Listened as mother and son expresses concerns regarding safe discharge plan if Pt does improve. Son reports being an RN and is a casemanager. Family concerns are Pt's inability to care for self, Pt's spouse is in faily health and unable to care for Pt. Pt has 2 state pain caregivers one of whom does not assist with Pt's needs. Continued therapeutic listening. Family is requesting that Pt is placed into higher level of care if she becomes medicaly stable for discharge. Family also reports concerns that Pt's spouse has plans to hasten both his and Pt's . Instructed concerns will be relayed to Caremanager. Family reports no other concerns and express appreciation of visit. Spoke with Bedside RN Miranda and discussed case. Spoke with Caremanager Karen and relayed family's concerns. Palliative Care will remain available for therapeutic visits.
--- NOTE | 2019-08-23 13:10 | NUR ---
PT REMAINS FEBRILE. PT REMAINS DIAPHORETIC AND EXTREMITIES COOL. HR 110'2-120'S. SBP 80-90'S AND MAP 60-65. SATS>90% ON AC 16, TV 500, PEEP 8, FIO2 50% RR 20'S. URINE OUTPUT 1000 CC SO FAR THIS SHIFT. DR. EVANS UPDATED TO CURRENT VS AND STATUS.
--- NOTE | 2019-08-23 16:42 | NUR ---
PT UPDATE... PT'S BP DROPPED DOWN TO THE 80'S/40'S PROVIDER AWARE, NS 500ML BOLUS ORDERED AND STARTED. CURENT PROPOFOL RUNNING AT 20MCG/KG/MIN, FENTANYL IS AT 75MCG/HR. MAINTAINING SATS >90% ON FIO2 OF 50% ON VENT WITH AC, RR 20'S-30'S EVEN AND UNLABORED. L/S CLEAR DIM T/O. BT STILL VERY HYPOACTIVE, ABD DISTENTION HAS NOT CHANGED SINCE AM ASSESSMENT, ABD TENDER TO PALP. TUBE FEED RUNNING AT 25 MLS/HR, 1600 RESIDUAL WAS 70MLS. PT IS FEBRILE AT 100.9. PT'S MOM AND SON AT THE BEDSIDE FOR APROX 45MINS TODAY. WILL CONTINUE TO MONITOR.
--- NOTE | 2019-08-23 19:00 | NUR ---
ASSUMED CARE ASSUMED CARE OF PATIENT. REMAINS INTUBATED- AC 16, TV 500, PEEP 8, FIO2 50%. RR MID-20s TO 30s. SEDATED WITH PROPOFOL @ 20MCG/KGHR AND FENTANYL GTT @ 75MCG/HR. OPENS EYES TO VERBAL STIMULI. MOVES ALL EXTREMITIES SPONTANEOUSLY AND TO COMMAND. FOLLOW SIMPLE COMMANDS. SHAKES/NODS HEAD "YES/NO" APPROPRIATELY. BILATERAL SOFT WRIST RESTRAINTS IN PLACE TO PREVENT SELF-EXTUBATION. MONITOR SHOWS ST, RATE 110-115. SBP 80s-90s. TEMP 100.9F PER DEVRIES TEMP PROBE. OG WITH VITAL HIGH PROTEIN AT GOAL RATE OF 25CC/HR. DEVRIES PATENT AND DRAINING DARK CHUCK URINE. COLOR IS PALE AND SKIN IS CLAMMY. SEE SHIFT ASSESSMENT FOR FULL ASSESSMENT.
--- NOTE | 2019-08-23 20:10 | NUR ---
SEDATION/HYPOTENSION RESP RATE NOW IN MID-30s. SBP REMAINS LOW. CALL TO DR. EVANS TO DISCUSS PLAN OF CARE IN BALANCING SEDATION NEEDS WITH HEMODYNAMICS. NEW ORDERS RECEIVED FOR A FLUID BOLUS AND FOR LEVOPHED GTT IF NEEDED.
[2019-08-24 03:43] LABS: Base Excess Venous -2.1 mmol/L; Bicarbonate Venous 22.9 mmol/L (24.0-30.0); PCO2 Venous 31.4 mmHg (38-42); PO2 Venous 45.3 mmHg (38-42); pH Blood Venous 7.45 (7.34-7.37)
[2019-08-24 03:43] LABS: Hematocrit 37.3 % (33.0-51.0); Hemoglobin 11.7 g/dL (11.5-16.0); Mean Corpuscular HGB 27.1 pg (26.0-34.0); Mean Corpuscular HGB Conc 31.4 g/dL (31.5-36.5); Mean Platelet Volume 10.7 fL (9.1-12.4); NRBC ABSOLUTE 0.04 K/mm3 (0.00-0.02); NRBC Auto 0.2 /100 WBC (0.0-0.2); Platelet Count 226 K/mm3 (150-400); RDW Standard Deviation 50.8 fL (35.1-46.3); Red Blood Cell Count 4.31 M/mm3 (3.80-5.20); White Blood Cell Count 24.76 K/mm3 (4.00-11.30)
[2019-08-24 03:44] LABS: BASOPHILS ABSOLUTE AUTO 0.02 K/mm3 (0.00-0.23); BASOPHILS PERCENT AUTO 0 % (0-2); EOSINOPHILS ABSOLUTE AUTO 0.15 K/mm3 (0.00-0.68); EOSINOPHILS PERCENT AUTO 1 % (0-6); IMMATURE GRAN ABSOLUTE AUTO 4.22 K/mm3 (0.00-0.10); IMMATURE GRAN PERCENT AUTO 17 % (0-1); LYMPHOCYTES ABSOLUTE AUTO 1.28 K/mm3 (0.84-5.20); LYMPHOCYTES PERCENT AUTO 5 % (21-46); MONOCYTES ABSOLUTE AUTO 0.61 K/mm3 (0.16-1.47); MONOCYTES PERCENT AUTO 3 % (4-13); Mean Corpuscular Volume 87 fL (80-100); NEUTROPHILS ABSOLUTE AUTO 18.48 K/mm3 (1.96-9.15); NEUTROPHILS PERCENT AUTO 75 % (41-73)
[2019-08-24 03:58] LABS: Anion Gap 7 mmol/L (6-16); Blood Urea Nitrogen 27 mg/dL (8-24); Bun/Creatinine Ratio 43.9 (12.0-20.0); CO2, Blood 24 mmol/L (21-32); Calcium, Blood 7.3 mg/dL (8.5-10.1); Chloride, Blood 112 mmol/L (98-108); Creatinine, Blood 0.62 mg/dL (0.40-1.00); Glomerular Filtration Rate >60 (60-); Glucose, Blood 191 mg/dL (70-99); Magnesium, Blood 2.1 mg/dL (1.6-2.4); Phosphorus, Blood 1.6 mg/dL (2.5-4.9); Potassium, Blood 3.4 mmol/L (3.5-5.5); Sodium, Blood 143 mmol/L (136-145)
[2019-08-24 04:01] LABS: BAND PERCENT MAN 20 % (0-8); BASOPHILS PERCENT MAN 0 % (0-2); EOSINOPHILS PERCENT MAN 0 % (0-6); LYMPHOCYTES ABSOLUTE MAN 1.48 K/mm3 (0.84-5.20); LYMPHOCYTES PERCENT MAN 6 % (21-46); METAMYELOCYTE ABSOLUTE MAN 1.73 K/mm3 (0.00-0.00); METAMYELOCYTE PERCENT MAN 7 % (0-0); MONOCYTES ABSOLUTE MAN 0.49 K/mm3 (0.16-1.47); MONOCYTES PERCENT MAN 2 % (4-13); MYELOCYTE ABSOLUTE MAN 0.49 K/mm3 (0.00-0.00); MYELOCYTE PERCENT MAN 2 % (0-0); PROMYELOCYTE ABSOLUTE MAN 0.74 K/mm3 (0.00-0.00); PROMYELOCYTE PERCENT MAN 3 % (0-0); SEG NEUTROPHILS PERCENT MAN 60 % (41-73); TOTAL CELLS COUNTED 100
--- NOTE | 2019-08-24 06:16 | NUR ---
UPDATE CALL TO MD DR. EVANS NOTIFIED OF CONTINUED HYPERTHERMIA AND RESP RATE 30s. NEW ORDER RECEIVED FOR MOTRIN 600MG PT Q8H PRN.
--- NOTE | 2019-08-24 06:29 | NUR ---
SHIFT SUMMARY REMAINS INTUBATED- AC 16, TV 500, PEEP 8, FIO2 50%. RR HIGH-20s TO 40. SEDATED WITH PROPOFOL BETWEEN 20-45MCG/KG/MIN DURING SHIFT- NOW AT 40MCG/KG/MIN. ROUSES TO STIMULI. FOLLOWS SOME SIMPLE COMMANDS. BILATERAL SOFT WRIST RESTRAINTS REMAIN IN PLACE TO PREVENT SELF-EXTUBATION. FENTANYL GTT AT 75MCG/HR T/O NOC. MONITOR SHOWS ST, RATE 100-130s. LEVOPHED 2MCG/MIN STARTED AT APPROXIMATELY 0230 TO MAINTAIN MAP >60 AND SBP >90. NOW INFUSING AT 1MCG/MIN. OG WITH VITAL HIGH PROTEIN AT GOAL RATE OF 25CC/HR. RESIDUAL WNL. DEVRIES PATENT AND DRAINING DARK TEA-COLORED URINE. MEDICATED WITH TYLENOL 650MG PT X 3 DOSES DURING NOC FOR TEMP >101F WITH LITTLE EFFECT NOTED. ICE PACKS TO BILATERAL AXILLA AND GROIN. WILL REPORT TO DAY SHIFT RN WHEN AVAILABLE.
--- NOTE | 2019-08-24 08:00 | NUR ---
PT REMAINS INTUBATED, SEDATED, AND RESTRAINED. PT GRIMACING-RR 30'S. PT IS SEDATED ON PROPOFOL @ 40 MCG AND STILL NODS "YES" THAT SHE IS BOTH ANXIOUS AND IN PAIN. FENTANYL CONTINUOUS DRIP @ 75 MCG/HR-INCREASED TO 100 MCG/HR. PT MED WITH ATIVAN 2 MG IVP X 1. PT FOLLOWING COMMANDS, TO SOLUTIONS ARCHITECT AND WIGGLE TOES, BUT APPEARS TO BE WEAKER THAN 08/23/19 ASSESSMENT. PT REMAINS FEBRILE DESPITE COOLING MEASURES, AND TYLENOL GIVEN ON NOC SHIFT. PT MED WITH IBU 600 MG PER OGT. ECG SHOWS ST WITH RATE 110'S. MAP 60-65 WITH LEVOPHED DRIP-CURRENTLY @ 1 MCG/MIN. SCLERAL AND GENERALIZED EDEMA CONTINUES. EXTREMITIES ELEVATED ON PILLOWS. LUNGS DIMINISHED IN THE BASES. ETT TO VENT: AC 16, TV 500, FIO2 50%, PEEP 8-SATS>90% SUCTION PRODUCTIVE OF SCANT AMOUNT OF CLEAR SECRETIONS. ABDOMEN IS SEVERLY DISTENDED AND TENDER TO PALPATION. FEW, HYPOACTIVE BT'S AUSCULTATED. OGTF CONTINUES AT GOAL RATE OF 25 CC/HR. PT TOLERATING WELL-20 CC RESIDUAL REFED. DEVRIES WITH SMALL AMOUNT OF TEA COLORED URINE TO UROMETER.
[2019-08-24 08:02] LABS: Alanine Aminotransfer (ALT/SGP 46 U/L (12-78); Albumin, Blood 1.8 g/dL (3.4-5.0); Albumin/Globulin Ratio 0.5 (0.8-1.8); Alk Phos 275 U/L (50-136); Aspartate Aminotrans (AST/SGOT 86 U/L (12-37); Bilirubin, Direct 0.4 mg/dL (0.0-0.3); Bilirubin, Indirect 0.4 mg/dL (0.1-0.7); Bilirubin, Total 0.8 mg/dL (0.1-1.0); Globulin, Blood 3.8 g/dL (2.2-4.0); Total Protein, Blood 5.6 g/dL (6.4-8.2)
--- NOTE | 2019-08-24 09:25 | NUR ---
DR EVANS IN TO SEE PT. UPDATED TO CURRENT VS AND STATUS. ABDOMINAL XRAY AND ULTRASOUND REQUESTED. LFT'S ADDED TO THIS AM LABS. FIO2 DECREASED TO 40% LEVOPHED DRIP TITRATED UP TO 4 MCG TO KEEP MAP>60-65 AND SBP>90.
--- NOTE | 2019-08-24 10:25 | NUR ---
TF OFF PER DR. EVANS ORDER. SURGICAL CONSULT REQUESTED. WILL CONTACT DR. FELICIANO.
--- NOTE | 2019-08-24 13:18 | NUR ---
[id number]: PT TO CT SCAN VIA BED WITH RONAL LOPEZ AND RT @ BEDSIDE. PT TOLERATED WELL. NO ACUTE CHANGES.
--- NOTE | 2019-08-24 13:38 | NUR ---
DR. FELICIANO AT BEDSIDE. SPEAKING WITH PT SPOUSE ALEXANDRA AND MOTHER RICHARD.
--- NOTE | 2019-08-24 14:26 | NUR ---
PT SPOUSE AND MOTHER HAVE DECIDED TO FORGO SURGERY FOR NOW. DISCUSSED POSSIBLE WITHDRAWL OF CARE AND COMFORT CARE. PT MOTHER RICHARD WOULD LIKE TO DISCUSS COMFORT CARE WITH OTHER FAMILY MEMBERS. CONTINUE WITH CURRENT PLAN OF CARE FOR NOW. DR. EVANS UPDATED.
--- NOTE | 2019-08-24 14:31 | NUR ---
Joint visit with Dr Mcdonald, Bedside RN Miranda, and this RN. Pt's spouse Du, and Pt's mother Juana at bedside. Dr Mcdonald discusses results of testing and options. Dr Mcdonald educates surgery as an option. Dr Mcdonald educates on risk for Pt given current condition and possible complications. Other options discussed such as continued supportive care and comfort care. Dr Mcdonald answers questions and discusses concerns. This RN and Miranda remaine behind for support and to discuss options further. Spouse and mother report they are leaning towards comfort care but would like to discuss further with other family members. Answered questions regarding arrangements and provided list of homes. Family expresses appreciation of visit. Palliative Care will remain available for supportive visits.
--- NOTE | 2019-08-24 15:33 | NUR ---
PT GRIMACING AND RR UPPER 30'S. MED WITH ATIVA 2 MG IVP X 1 FOR ANXIETY. PT REMAINS FEBRILE. MAINTAINS MAP 60-65 WITH LEVOPHED @ 5 MCG/MIN. NO VENT CHANGES. MAINTAINS SATS>90% ON FIO2 40% DEVRIES CONTINUE TO DRAIN A SMALL AMOUNT OF DARK, BROWN URINE.
--- NOTE | 2019-08-24 17:26 | NUR ---
PT MOTHER IN FOR VISIT. SHE AND PT SPOUSE, ALEXANDRA HAVE SPOKE WITH THE REST OF THE FAMILY MEMBERS AND THE GENERAL CONCENSUS IS TO MAKE PT COMFORT CARE TOMORROW. IN THE MEANTIME, PT IS TO REMAIN DNR STATUS.
--- NOTE | 2019-08-24 17:30 | NUR ---
PT AGITATED & CRYING WITH POSITION CHANGE. PROPOFOL TITRATED UP TO 50 MCG/KG/MIN.
[2019-08-25 03:18] LABS: Base Excess Venous -1.6 mmol/L; Bicarbonate Venous 23.2 mmol/L (24.0-30.0); PCO2 Venous 31.7 mmHg (38-42); PO2 Venous 38.9 mmHg (38-42); pH Blood Venous 7.46 (7.34-7.37)
[2019-08-25 03:22] LABS: BASOPHILS ABSOLUTE AUTO 0.03 K/mm3 (0.00-0.23); BASOPHILS PERCENT AUTO 0 % (0-2); EOSINOPHILS ABSOLUTE AUTO 0.21 K/mm3 (0.00-0.68); EOSINOPHILS PERCENT AUTO 1 % (0-6); Hemoglobin 11.6 g/dL (11.5-16.0); IMMATURE GRAN ABSOLUTE AUTO 4.36 K/mm3 (0.00-0.10); IMMATURE GRAN PERCENT AUTO 13 % (0-1); LYMPHOCYTES ABSOLUTE AUTO 2.04 K/mm3 (0.84-5.20); LYMPHOCYTES PERCENT AUTO 6 % (21-46); MONOCYTES ABSOLUTE AUTO 0.91 K/mm3 (0.16-1.47); MONOCYTES PERCENT AUTO 3 % (4-13); Mean Corpuscular HGB 27.4 pg (26.0-34.0); Mean Corpuscular HGB Conc 31.4 g/dL (31.5-36.5); Mean Corpuscular Volume 87 fL (80-100); Mean Platelet Volume 10.3 fL (9.1-12.4); NEUTROPHILS ABSOLUTE AUTO 26.11 K/mm3 (1.96-9.15); NEUTROPHILS PERCENT AUTO 78 % (41-73); NRBC ABSOLUTE 0.04 K/mm3 (0.00-0.02); NRBC Auto 0.1 /100 WBC (0.0-0.2); Platelet Count 243 K/mm3 (150-400); RDW Coefficient Variation 16.1 % (11.7-14.2); RDW Standard Deviation 51.4 fL (35.1-46.3); Red Blood Cell Count 4.24 M/mm3 (3.80-5.20); White Blood Cell Count 33.66 K/mm3 (4.00-11.30)
[2019-08-25 03:39] LABS: Magnesium, Blood 2.1 mg/dL (1.6-2.4)
[2019-08-25 03:40] LABS: Alanine Aminotransfer (ALT/SGP 45 U/L (12-78); Albumin, Blood 1.6 g/dL (3.4-5.0); Albumin/Globulin Ratio 0.4 (0.8-1.8); Alk Phos 259 U/L (50-136); Anion Gap 6 mmol/L (6-16); Aspartate Aminotrans (AST/SGOT 70 U/L (12-37); Bilirubin, Total 0.6 mg/dL (0.1-1.0); Blood Urea Nitrogen 21 mg/dL (8-24); CO2, Blood 23 mmol/L (21-32); Calcium, Blood 7.2 mg/dL (8.5-10.1); Chloride, Blood 111 mmol/L (98-108); Creatinine, Blood 0.51 mg/dL (0.40-1.00); Globulin, Blood 3.9 g/dL (2.2-4.0); Glomerular Filtration Rate >60 (60-); Glucose, Blood 164 mg/dL (70-99); Phosphorus, Blood 1.8 mg/dL (2.5-4.9); Potassium, Blood 3.9 mmol/L (3.5-5.5); Sodium, Blood 140 mmol/L (136-145); Total Protein, Blood 5.5 g/dL (6.4-8.2)
[2019-08-25 03:41] LABS: BAND PERCENT MAN 20 % (0-8); BASOPHILS PERCENT MAN 0 % (0-2); BLASTS PERCENT MAN 2 % (0-0); EOSINOPHILS PERCENT MAN 0 % (0-6); LYMPHOCYTES ABSOLUTE MAN 0.67 K/mm3 (0.84-5.20); LYMPHOCYTES PERCENT MAN 2 % (21-46); METAMYELOCYTE ABSOLUTE MAN 2.01 K/mm3 (0.00-0.00); METAMYELOCYTE PERCENT MAN 6 % (0-0); MONOCYTES PERCENT MAN 0 % (4-13); MYELOCYTE PERCENT MAN 3 % (0-0); NEUTROPHILS ABSOLUTE MAN 28.27 K/mm3 (1.96-9.15); PROMYELOCYTE PERCENT MAN 3 % (0-0); SEG NEUTROPHILS PERCENT MAN 64 % (41-73); TOTAL CELLS COUNTED 100
--- NOTE | 2019-08-25 06:27 | NUR ---
pt sedated on propofol @ 50 mcg/kg/min and fentanyl 100 mcg/hr. Pt sleepy, arouses to voice, nods appropiately. pt tachy and tachypnic over night. BP maintaining MAP >65 on levophed @ 5 mcg/min. Febrile overnight; ice packs and ice baths utilized overnight along with PRN tylenol and there was no reduction in temperature. Pt's abdomen is still distended and tender. Updated pt's daughter caroline overnight. Plan is to make a decision regarding comfort care today.
--- NOTE | 2019-08-25 08:55 | NUR ---
ASSESSMENT- PT SEDATED WITH PROPOFOL AT 50 MCG/KG/MIN. OPENS EYES TO NAME, ABLE TO NOD HEAD. PERRL. EXPLAINED PLAN OF CARE. ORALLY INTUBATED, TUBE SECURE. TOLERATING VENT SETTINGS. RESPIRATIONS TACHYPNEIC, UNLABORED. SINUS TACH, SBP 100'S, LEVOPHED AT 5 MCG/MIN, TITRATING DOWN. NS AT 75 CC/HR. RIJ CENTRAL LINE DI. FENTANYL FOR PAIN AT 100 MCG/HR. ABDOMEN LARGE, DISTENDED, NO BOWEL SOUNDS HEARD, OGT CLAMPED-RESIDUAL 150 CC BROWN DRAINAGE-CHANGED TO LIS. UO VIA DEVRIES. RIGHT FOOT BOOT FOR FOOT DROP. HEEL PROTECTORS ON.
--- NOTE | 2019-08-25 10:31 | NUR ---
DR. EVANS HERE, PT'S HERE. UPDATED. VSS. NO S/S PAIN, FENTANYL DECREASED TO 50 MCG/HR
--- NOTE | 2019-08-25 10:37 | NUR ---
PT MORE AWAKE, C/O PAIN, GENERALIZED, UNABLE TO RATE PAIN. FENTANYL BACK TO DOSE AT 100 MCG/HR
--- NOTE | 2019-08-25 11:58 | NUR ---
PT'S FAMILY HERE-, SISTER, SON AT BEDSIDE. DR. EVANS HERE-ORDERS FOR EXTUBATION, COMFORT CARE STATUS. PT EXTUBATED TO ROOM AIR. PRE-RX WITH ATIVAN. IMMEDIATE AIR HUNGER, TACHYPNEA-RX WITH MORPHINE ORDERED. FENTANYL GTT CONTINUES AT 100 MCG/HR. EYES OPEN, RESPONDS TO NAME, DOES MOAN AT TIMES. REPOSITIONED FOR COMFORT. FEBRILE. SKIN DAMP,WARM
--- NOTE | 2019-08-25 12:00 | NUR ---
Pt has transitioned to comfort care and has been extubated. Pt's , mother and son are at the bedside. Hamper Maker Machine Fiona has also been in the room. Family verbalizes no needs at this time. Emotional support given.
--- NOTE | 2019-08-25 12:04 | NUR ---
End-of-life spiritual care note: Provided prayer and gentle careers counsellor to family pre-extubation. Spouse, Du, very frail and stoic. Son, Christian, tearful and appropriate. Pt's mother, Juana was talkative. Facilitated conversation with son. Complicated relationship with pt. Diesel Scoop Operator well recieved. Stayed with family throughout extubation. Prayer for a peaceful transition provided. I will continue to monitor.
--- NOTE | 2019-08-25 12:14 | NUR ---
AIR HUNGER, MOANING. MORPHINE DOSE REPEATED PER ORDERS WITH IMPROVEMENT. FAMILY AT BEDSIDE. BANK VAULT CUSTODIAN HERE, PALLIATIVE CARE RN.
--- NOTE | 2019-08-25 13:09 | NUR ---
REMAINS TACHYPNEIC, EYES OPEN, SOME MOANING. RX WITH ROXANOL. FAMILY AT BEDSIDE.
--- NOTE | 2019-08-25 15:29 | NUR ---
Pt is on comfort care. Pt continues to have air hunger despite morphine 5mg IVP Q 30 min., fentanyl 100 mcg/hour infusion, morphine nebulizer treatment and ativan IV. Discussed with Dr. Boogie, pharmacists [place] and nursing. Plan is to dc fentanyl continuous infusion and change to a morphine ENVIRONMENTAL ENGINEER SCIENTIST with a loading dose and a continuous dose. Increase the frequency of ativan to every two hours and add atropine gtts for secretions. PC will continue to follow for assistance with symptom management and emotional support for pt and family.
--- NOTE | 2019-08-25 16:28 | NUR ---
PT STILL WITH TACHYPNEA, CHANGED TO MORPHINE TELE GROUT SEWER LINE REPAIRER AT 4 MG/HR MAXIMUM DOSE ON PUMP. EYES OPEN, HAD LOUDER RESPIRATIONS-GIVEN ATROPINE GTTS WITH IMPROVEMENT. DOES RESPOND TO NAME. REPOSITIONED FOR COMFORT. SKIN DIAPHORETIC. COMFORT MEASURES-FAN ON
--- NOTE | 2019-08-25 17:14 | NUR ---
RESP RATE STILL 30 BPM, RESPONDS TO NAME. RX WITH MORPHINE WITH SOME IMPROVEMENT OF INCREASED EFFORT. PALLIATIVE CARE RN HERE. FAMILY HERE-UPDATED [facility] PLAN, COMFORT STATUS, PLANS FOR TRANSFER
--- NOTE | 2019-08-25 18:22 | NUR ---
PT TRANSFERRED TO MEDICAL FLOOR ROOM 308 IN BED. RESP RATE 30 BPM, COLOR BARBOZA, SKIN DAMP. COMFORT MEASURES. TRANSFERRED TO BED WITH 4 STAFF. CENTRAL LINE INTACT.
--- NOTE | 2019-08-25 19:32 | NUR ---
CC ASSESSMENT: PATIENT XFR FROM ICU08. LINOLEUM MECHANIC PUMP @ 4CC/HR. PT UNRESPONSIVE. JAYCOB PATENT & DRAINING. NO FAMILY IN ROOM. WCTM.
--- NOTE | 2019-08-26 00:51 | NUR ---
08/25/192004 FAMILY AT BEDSIDE AND REQUESTING MED PT SEEMS "UNCOMFORTABLE". PT WITH MOIST BREATHE SOUNDS AND SLIGHT SOB. PT APPEARS RESTLESS. MEDICATED PER MAY. IV WITH STRATEGIC PLANNING SPECIALIST OF MORPHINE DRIP. PUPILS NON-REACTIVE TO LIGHT. UNRESPONSIVE TO PAIN STIMULUS.
--- NOTE | 2019-08-26 00:57 | NUR ---
08/25/192029 FAMILY CALLED RN THAT PT IS NOT BREATHING. PT WITHOUT PULSE OR RESP. PUPILS FIXED AND DILATED. OFFICE SECRETARY, URVASHI, INFORMED AND CONFIRMED PT HAS AT 2029. FAMILY INFORMED AND ANTICIPATED THIS EVENT. AND SISTER STATED THAT THEY WOULD INFORM THE REST OF FAMILY OF . INFORMED OFFICE SECRETARY OF WANTING "[facility]" TO GENERAL SCRAP WORKER THE BODY. FAMILY LEFT AFTER 20 MINUTES AND STATED NO FURTHER FAMILY TO COME. BODY PREPARED FOR MORTUARY. DEVRIES DC'D INTACT. IV FLUIDS AND DRIP DC'D.
--- NOTE | 2019-08-26 01:04 | NUR ---
08/25/19 5116 DEE EDWARDS FROM MORTUARY HERE TO AIRFIELD ENGINEER OFFICER [employer]. DENTURES AND FAMILY PICTURES SENT WITH BODY.
== END 2019-08-25 20:30 | DRG 870 ==
LOC: ER 20:33 → ICUE 08-19 01:01 → ICUW 08-19 01:01 → ICUE 08-19 01:15 → MEDS 08-25 17:58
PROVIDERS: Emergency Medicine; Family Medicine; Internal Medicine; Internal Medicine Critical Care Medicine; Internal Medicine Pulmonary Disease; ADMIT Internal Medicine
PROC: 3E033XZ Introduction of Vasopressor into Peripheral Vein, Percutaneous Approach (ICD-10-PCS; principal; 2019-08-19)
PROC: 03H533Z Insertion of Infusion Device into Right Axillary Artery, Percutaneous Approach (ICD-10-PCS; 2019-08-19)
PROC: 5A1955Z Respiratory Ventilation, Greater than 96 Consecutive Hours (ICD-10-PCS; 2019-08-20)
PROC: 0BH18EZ Insertion of Endotracheal Airway into Trachea, Via Natural or Artificial Opening Endoscopic (ICD-10-PCS; 2019-08-20)
PROC: 02HV33Z Insertion of Infusion Device into Superior Vena Cava, Percutaneous Approach (ICD-10-PCS; 2019-08-25)
DX: A41.9 Sepsis, unspecified organism (principal); J69.0 Pneumonitis due to inhalation of food and vomit; R65.21 Severe sepsis with septic shock; J96.01 Acute respiratory failure with hypoxia; N39.0 Urinary tract infection, site not specified; Z79.82 Long term (current) use of aspirin; Z79.4 Long term (current) use of insulin; J44.9 Chronic obstructive pulmonary disease, unspecified; Z51.5 Encounter for palliative care; M19.90 Unspecified osteoarthritis, unspecified site; F21 Schizotypal disorder; I25.2 Old myocardial infarction; B19.20 Unspecified viral hepatitis C without hepatic coma; Z96.643 Presence of artificial hip joint, bilateral; F17.210 Nicotine dependence, cigarettes, uncomplicated; E66.01 Morbid (severe) obesity due to excess calories; Z68.38 Body mass index [BMI] 38.0-38.9, adult; J84.10 Pulmonary fibrosis, unspecified; E11.40 Type 2 diabetes mellitus with diabetic neuropathy, unspecified; E78.5 Hyperlipidemia, unspecified; K21.9 Gastro-esophageal reflux disease without esophagitis; F20.9 Schizophrenia, unspecified; I25.10 Atherosclerotic heart disease of native coronary artery without angina pectoris; Z89.429 Acquired absence of other toe(s), unspecified side; E86.0 Dehydration; R91.8 Other nonspecific abnormal finding of lung field; Z85.3 Personal history of malignant neoplasm of breast; G89.4 Chronic pain syndrome; K52.9 Noninfective gastroenteritis and colitis, unspecified
CPT/HCPCS: 31500; 31720; 36415; 36620; 51702; 71045; 71260; 74018; 74177; 76705; 80047; 80048; 80053; 80069; 80076; 80202; 81001; 82565; 82803; 82947; 83605; 83735; 83880; 84100; 84484; 85014; 85025; 85610; 87040; 87070; 87077; 87086; 87147; 87186; 87205; 93005; 93010; 93970; 94002; 94003; 94640; 94667; 94668; 96365-59; 96367; 96367-59; 96368; 96375; 96375-59; 99285-25; C1751; C8929; C9113; J0330; J0610; J0692; J0696; J0744; J1170; J1644; J1720; J1885; J1940; J2020; J2060; J2250; J2270; J2370; J2405; J2704; J2765; J3010; J3370; J3480; J7030; J7040; J7050; J7060; J7120; P9046; Q9957; Q9967